=== PATIENT | female | born 1995 | race Caucasian/White ===

== ENCOUNTER 2016-12-28 12:00 | Outpatient (CLI) | payer BC, MEDICAID ==
[~2016-12-28] VITALS: Ht 162.6 cm; Wt 126.1 kg
[~2016-12-28 12:00] MED LIST: CLOT45CR46 TOP; CYCL10TA9 PO; DICL75TA2 PO; DOXY100C2 PO; FAMO20TA5 PO; HYDR-3714 PO; IBUP800T26 PO; LEVO500T69 PO; LEVO750T24 PO; METH4TAB PO; NAPR-243 PO; OXYC-12 PO; SULF-222 PO
--- OUTSIDE RECORDS SUMMARY | 2016-12-28 12:09 | XMS REPORT | Continuity of Care Document ---
Author Author [facility] Organization [facility] Address Unknown Phone Unavailable Care Team Providers Care Finishing Supervisor Plastic Sheets Name Role Phone Siobhan Siu PCP [phone] Source Comments Some departments are not documenting in the electronic medical record. If you do not see the information that you expected, contact Release of Information in the Health Information Management department at [phone] for further assistance in locating additional records.[facility] Active Allergies and Adverse Reactions Not on File Current Medications Not on file Active Problems Not on file Social History Tobacco Use Types Packs/Day Years Used Date Never Assessed Plan of Care Health Maintenance Due Date Last Done Comments Physical (Comprehensive) 2002 Exam Hpv Vaccines (#1) 2006 Pertussis Vaccine 2006 Tetanus Vaccine 2012 Influenza Vaccine 07/28/2016 Results from Last 3 Months Not on file
[2016-12-28 12:15] VITALS: BP 116/67
[2016-12-28] MEDS ORDERED: PREN-53 PO (14:12)
--- NOTE | 2016-12-29 09:39 | Physician Query-Final Dx ---
KIERSTEN REGALADO 12/29/16 0939: Final Diagnosis Give Final Diagnosis Please give Final Diagnosis SABI ANTUNEZ MD 12/29/16 1800: Final Diagnosis Give Final Diagnosis Decreased movement, second trimester KIERSTEN REGALADO Dec 29, 2016 09:39 SABI ANTUNEZ MD Dec 29, 2016 18:00
== END 2016-12-28 14:20 | disposition home or self-care (01) ==
LOC: WSo 12:00 → LDRP 12:00 → WSo 14:20
PROVIDERS: ATTEND Obstetrics & Gynecology
DX: O36.8120 Decreased fetal movements, second trimester, not applicable or unspecified (principal); Z3A.27 27 weeks gestation of pregnancy
CPT/HCPCS: 99213

== ENCOUNTER 2017-02-17 22:06 | Outpatient (CLI) | payer MEDICAID ==
[~2017-02-17] VITALS: Ht 162.6 cm; Wt 128.8 kg
[~2017-02-17 22:06] MED LIST changes: +PREN-53 PO
[2017-02-17 22:30] VITALS: BP 134/70
[2017-02-17 22:33] LABS: BILIRUBIN,URINE NEGATIVE (NEGATIVE); KETONES,URINE NEGATIVE (NEGATIVE); LEUKOCYTE ESTERASE ,URINE 3+ (NEGATIVE); NITRITE,URINE NEGATIVE (NEGATIVE); PH,URINE 5 (5-9); PROTEIN,URINE 1+ (NEGATIVE); UROBILINOGEN,URINE NORMAL (NORMAL)
[2017-02-17 22:42] LABS: SQUAMOUS EPITHELIAL CELL,UR 25-50 /HPF; WBC,URINE 50-100 /HPF
[2017-02-17] MEDS ORDERED: CEPH-507 PO (22:54)
--- NOTE | 2017-02-20 14:04 | Physician Query-Final Dx ---
MATT GRUBBS 02/20/17 1404: Clinic Account Progress/Dx Physician Query: Please give diagnosis Date of Service Feb 17, 2017 at 22:06 EFREM LOAIZA DO 02/20/17 1643: Clinic Account Progress/Dx DIAGNOSIS: Diagnosis 34 week IUP Back pain and pelvic pressure MATT GRUBBS Feb 20, 2017 14:04 EFREM LOAIZA DO Feb 20, 2017 16:43
[2017-03-16] MEDS ORDERED: HYDR-3812 PO (20:23)
[2017-03-16] MEDS ORDERED: DOCU100C37 PO (20:23)
[2017-03-16] MEDS ORDERED: IBUP-1780 PO (20:23)
== END 2017-02-17 23:06 | disposition home or self-care (01) ==
LOC: DELPENDDIS → WSo 22:06 → LDRP 22:13 → WSo 23:06
PROVIDERS: ATTEND Obstetrics & Gynecology
DX: O99.89 Other specified diseases and conditions complicating pregnancy, childbirth and the puerperium (principal); M54.9 Dorsalgia, unspecified; R10.2 Pelvic and perineal pain; Z3A.34 34 weeks gestation of pregnancy
CPT/HCPCS: 81000; 87088; 99213

== ENCOUNTER 2017-02-28 16:30 | Observation (INO) | payer MEDICAID ==
[~2017-02-28] VITALS: Ht 162.6 cm; Wt 128.8 kg
[2017-02-28] VITALS (7 sets, daily range): BP systolic 130–153; BP diastolic 66–86
[~2017-02-28 16:30] MED LIST changes: +CEPH-507 PO
[2017-02-28] MEDS ORDERED: NS IV 1000 ML 1,000 ML ONE (16:59)
[2017-02-28] MEDS ORDERED: NS IV 1000 ML 1,000 ML IV SCH (17:00)
[2017-02-28] MEDS ORDERED: CATHETER FLUSH 10 ML SYR IV PRN (17:15)
[2017-02-28 17:52] LABS: PROTEIN/CREATININE RATIO 0.08
[2017-02-28 18:00] LABS: BASOPHILS % (AUTO) 0 % (0-10); EOSINOPHILS # (AUTO) 0.1 10^3/uL (0.0-0.3); EOSINOPHILS % (AUTO) 1 % (0-10); LYMPHOCYTES % (AUTO) 22 % (12-44); MEAN CORPUSCULAR HEMOGLOBIN 30 PG (25-34); MEAN CORPUSCULAR HGB CONC 35 G/DL (32-36); MEAN CORPUSCULAR VOLUME 85 FL (80-99); MEAN PLATELET VOLUME 12.6 FL (7.4-10.4); MONOCYTES # (AUTO) 0.7 X 10^3 (0.0-1.0); MONOCYTES % (AUTO) 8 % (0-12); NEUTROPHILS # (AUTO) 6.6 X 10^3 (1.8-7.8); NEUTROPHILS % (AUTO) 70 % (42-75); PLATELET COUNT 124 10^3/uL (130-400); RED BLOOD COUNT 4.22 10^6/uL (4.35-5.85); RED CELL DISTRIBUTION WIDTH 14.3 % (10.0-14.5); WHITE BLOOD COUNT 9.4 10^3/uL (4.3-11.0)
[2017-02-28 18:20] LABS: ALANINE AMINOTRANSFERASE 12 U/L (0-55); ALBUMIN 3.5 G/DL (3.2-4.5); ANION GAP 11 MMOL/L (5-14); ASPARTATE AMINO TRANSFERASE 17 U/L (5-34); BILIRUBIN,TOTAL 0.5 MG/DL (0.1-1.0); BLOOD UREA NITROGEN 7 MG/DL (7-18); BUN/CREATININE RATIO 9; CALCIUM 9.2 MG/DL (8.5-10.1); CARBON DIOXIDE 20 MMOL/L (21-32); CHLORIDE 108 MMOL/L (98-107); CREATININE SERUM 0.75 MG/DL (0.60-1.30); GFR ESTIMATED > 60; GLUCOSE 78 MG/DL (70-105); POTASSIUM 3.5 MMOL/L (3.6-5.0); SODIUM 139 MMOL/L (135-145); TOTAL PROTEIN 6.2 G/DL (6.4-8.2); URIC ACID 6.3 MG/DL (2.6-7.2)
--- NOTE | 2017-02-28 18:31 | History & Physical-OB ---
OB - Chief Complaint & HPI Date Date of Admission: Date of Admission: Feb 28, 2017 at 16:45 Chief Complaint/History OB-Reason for Admission/Chief: Acute BP elevation and LE swelling Hx : 1 Hx Para: 0 Expected Date of Delivery: March 29, 2017 Gestational Age in Weeks: 35 Gestational Age in Days: 6 Admission Nurse Assessment Rev: Yes History of Labs O pos Antibody neg Rubella non immune RPR NR HBsAg NR HIV NR GC neg GBS unknown Allergies and Home Medications Allergies Coded Allergies: Penicillins (Verified Allergy, Mild, 02/17/17) amoxicillin (Unverified Allergy, Mild, 02/17/17) Uncoded Allergies: SEASONAL ALLERGIES (Allergy, Mild, 04/30/13) Home Medications Cephalexin 500 Mg Capsule, 500 MG PO QID for 5 Days Prescribed by: HUDSON RICHARD on 02/17/17 2254 [id number]/Iron Fumarate/FA/Dss 1 Each Tablet, 1 EACH PO DAILY, (Reported) OB - History Hx of Present Care: Yes Ultrasounds: Normal mid trimester US Obstetrical Complications: Gestational Hypertension Medical Complications: None Delivery History Hx Blood Disorders: No Patient Past Medical History n/a Immunizations Tetanus Booster (TDap): Less than 5yrs Date of Influenza Vaccine: Aug 27, 2016 OB - Admission Exam Physical Exam HEENT: NCAT Heart: Rhythm Normal Lungs: Clear Abdomen: Gravid Extremities: Normal Reflexes: Normal Membranes: Intact Heart Rate: 130's Accelerations: Accelerations Present Decelerations: No Decelerations Short Term Variability: Present Longterm Variability: Average (6-25) Contractions on Admission: >10 Minutes Apart Intensity: Mild Labs Laboratory Tests Test 02/28/17 16:45 02/28/17 17:30 Range/Units Urine Protein 18 H 6-12 MG/DL Urine Creatinine 225 H 30-125 MG/DL Urine Protein/Creatinine Ratio 0.08 White Blood Count 9.4 4.3-11.0 10^3/uL Red Blood Count 4.22 L 4.35-5.85 10^6/uL Hemoglobin 12.6 11.5-16.0 G/DL Hematocrit 36 35-52 % Mean Corpuscular Volume 85 80-99 FL Mean Corpuscular Hemoglobin 30 25-34 PG Mean Corpuscular Hemoglobin Concent 35 32-36 G/DL Red Cell Distribution Width 14.3 10.0-14.5 % Platelet Count 124 L 130-400 10^3/uL Mean Platelet Volume 12.6 H 7.4-10.4 FL Neutrophils (%) (Auto) 70 42-75 % Lymphocytes (%) (Auto) 22 12-44 % Monocytes (%) (Auto) 8 0-12 % Eosinophils (%) (Auto) 1 0-10 % Basophils (%) (Auto) 0 0-10 % Neutrophils # (Auto) 6.6 1.8-7.8 X 10^3 Lymphocytes # (Auto) 2.0 1.0-4.0 X 10^3 Monocytes # (Auto) 0.7 0.0-1.0 X 10^3 Eosinophils # (Auto) 0.1 0.0-0.3 10^3/uL Basophils # (Auto) 0.0 0.0-0.1 10^3/uL Sodium Level 139 135-145 MMOL/L Potassium Level 3.5 L 3.6-5.0 MMOL/L Chloride Level 108 H 98-107 MMOL/L Carbon Dioxide Level 20 L 21-32 MMOL/L Anion Gap 11 5-14 MMOL/L Blood Urea Nitrogen 7 7-18 MG/DL Creatinine 0.75 0.60-1.30 MG/DL Estimat Glomerular Filtration Rate > 60 BUN/Creatinine Ratio 9 Glucose Level 78 70-105 MG/DL Uric Acid 6.3 2.6-7.2 MG/DL Calcium Level 9.2 8.5-10.1 MG/DL Total Bilirubin 0.5 0.1-1.0 MG/DL Aspartate Amino Transf (AST/SGOT) 17 5-34 U/L Alanine Aminotransferase (ALT/SGPT) 12 0-55 U/L Alkaline Phosphatase 98 40-136 U/L Total Protein 6.2 L 6.4-8.2 G/DL Albumin 3.5 3.2-4.5 G/DL OB - Assessment/Plan/Diagnosis Assessment Assessment: other (GHTN possible PreE) Plan Other Plan PreE labs ordered and pending BPP and Growth ordered If concerns of PreE will consider delivery, possible dc in AM if solely GHTN. BMZ ordered due to possibility of PTD Discharge Diagnosis Diagnosis: 21 yo @ 35.6 weeks GHTN w/ LE edema +3 GBS unknown EFREM LOAIZA DO Feb 28, 2017 18:31
--- NOTE | 2017-02-28 18:50 | Diagnostic Imaging Report ---
INDICATION: -induced hypertension. EXAM: biophysical profile. FINDINGS: The biophysical profile score was 8 out of 8. Presentation is cephalic. PACHECO 17.4. heart rate was 129 bpm. IMPRESSION: biophysical profile score was 8 out of 8. Dictated by: Dictated on workstation # [id number]
[2017-02-28] MEDS ORDERED: BETAMETHASONE ACE/NA PHOS 6 MG/ML (CELESTONE SOLUSPAN) ONE (18:58)
[2017-02-28] MEDS ORDERED: FAMOTIDINE 20MG/2ML IV (PEPCID) IVP NR (20:00)
[2017-03-01] VITALS: BP 133/61
[2017-03-01] MEDS: ACETAMINOPHEN 500 MG TAB (TYLENOL) PO PRN ×2 (01:26→08:21)
[2017-03-01 04:10] VITALS: BP 134/66
[2017-03-01 06:05] VITALS: BP 139/69
[2017-03-01 07:37] VITALS: BP 138/76
--- NOTE | 2017-03-01 07:49 | Progress Note-Standard ---
Standard Progress Note Progress Notes/Assess & Plan Progress/Assessment & Plan Patient had only one blood pressure elevation overnight, otherwise is doing well this morning. She denies headache, shortness of breath, chest pain, right upper quadrant pain. She has occasional contraction but nothing regular. She denies any vision changes. Vital Sign - Last 24 Hours 02/28/17 02/28/17 02/28/17 02/28/17 16:58 17:08 17:41 18:11 Temp 98.0 Pulse 96 95 85 78 Resp 20 20 18 B/P (MAP) 130/69 134/70 138/86 137/84 Pulse Ox 98 O2 Delivery Room Air Room Air Room Air Room Air 02/28/17 02/28/17 02/28/17 03/01/17 19:14 20:00 21:00 00:00 Pulse 88 78 81 81 Resp 18 18 18 18 B/P (MAP) 135/66 153/79 141/77 133/61 O2 Delivery Room Air Room Air Room Air Room Air 03/01/17 03/01/17 04:10 06:05 Pulse 86 106 Resp 18 18 B/P (MAP) 134/66 139/69 O2 Delivery Room Air Room Air NST: Reactive, baseline shifting throughout the night anywhere from 130 to 110, the entire time there is moderate variability with accelerations present, rare variable deceleration [place]: No contractions this morning noted a couple were noted at admission the patient was not feeling them. Biophysical profile: 8 out of 8 with an PACHECO within normal limits growth is greater than 50th percentile Diagnosis: Gestational hypertension 35 week IUP Plan: Second dose of betamethasone to be given tonight at 7 p.m. Starting patient on 24-hour urine protein collection. Discharge patient home with modified bedrest and preeclampsia, labor precautions EFREM LOAIZA DO Mar 01, 2017 7:49 am
[2017-03-01 08:07] VITALS: BP 128/61
[2017-03-01] MEDS ORDERED: SERT25TA PO (08:31)
[2017-03-01] MEDS ORDERED: BETAMETHASONE ACE/NA PHOS 6 MG/ML (CELESTONE SOLUSPAN) IM SCH (09:00)
[2017-03-01 09:15] VITALS: BP 128/61
[2017-03-16] MEDS ORDERED: HYDR-3812 PO (20:23)
[2017-03-16] MEDS ORDERED: DOCU100C37 PO (20:23)
[2017-03-16] MEDS ORDERED: IBUP-1780 PO (20:23)
--- OUTSIDE RECORDS SUMMARY | 2017-04-02 15:06 | XMS REPORT ---
Author Author [facility]TO[facility] Address [address] [place], [place] [id number] Care Team Providers Care Peg Driver Name Role Phone [facility] PCP Unavailable Allergies and Adverse Reactions Name Reaction Notes amoxicillin PENICILLINS Plan of Treatment Not available. Medications Not available. Problem List Not available. Vital Signs Date Time BP-Sys(mm[Hg] BP-Chantel(mm[Hg]) HR(bpm) RR(rpm) Temp WT HT HC BMI BSA BMI Percentile O2 Sat(%) 03/14/2016 10:33:00 AM 122 mmHg 70 mmHg 98 bpm 18 rpm 97.4 F 206 lbs 64 in 35.36 kg/m2 2.05 m2 0 % 97 % Social History Name Description Comments smoking Never Alcohol Unknown Uses seatbelts Current every day Exercises regularly Current every day History of Procedures Not available. Results Summary Not available. History Of Immunizations Not available. History of Past Illness Name Date of Onset Comments NO SIGNIFICANT MEDICAL HX GIVEN Encounter for drug screening Mar 14 2016 12:17PM Payers Insurance Name Company Name Plan Name Plan Number Policy Number Policy Group Number Start Date [facility] PMRV PHYS/DS PMRV PHYS DS N/A History of Encounters Visit Date Visit Type Provider 03/14/2016 Office visit EFREM [facility]
--- OUTSIDE RECORDS SUMMARY | 2017-04-02 15:06 | XMS REPORT | Continuity of Care Document ---
Author Author [facility] Organization [facility] Address Unknown Phone Unavailable Care Team Providers Care Market Research Manager Name Role Phone Siobhan Siu PCP [phone] Source Comments Some departments are not documenting in the electronic medical record. If you do not see the information that you expected, contact Release of Information in the Health Information Management department at [phone] for further assistance in locating additional records.[facility] Active Allergies and Adverse Reactions Not on File Current Medications Not on file Active Problems Not on file Social History Tobacco Use Types Packs/Day Years Used Date Never Assessed Plan of Care Health Maintenance Due Date Last Done Comments Physical (Comprehensive) 2002 Exam Hpv Vaccines (#1) 2006 Pertussis Vaccine 2006 Tetanus Vaccine 2012 Cervical Cancer Screening 2016 Influenza Vaccine 07/28/2017 Results from Last 3 Months Not on file
--- OUTSIDE RECORDS SUMMARY | 2017-04-02 15:06 | XMS REPORT ---
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 Active Problem Acute maxillary sinusitis 461.0 Active Assessment Acute sinusitis, unspecified J01.90 Active Assessment Other specified bacterial agents as the cause of diseases classified elsewhere B96.89 Active Medications Medication Code System Code Instructions Start Date End Date Status Dosage Doxycycline Hyclate [facility] [address]-33 100 MG Orally every 12 hrs Oct 06, 2015 Oct 13, 2015 1 tablet Promethazine VC/Codeine [facility] [address]-63 6.25-5-10 MG/5ML Orally every 6 hrs Oct 06, 2015 5 ml as needed Procedures Procedure Coding System Code Date Office Visit, Est Pt., Level 3 CPT-4 99088 Oct 06, 2015 Vital Signs Date/Time: Oct 06, 2015 Temperature 97.9 F Weight 273.8 lbs Height 64 in BMI 46.99 Index Blood Pressure Diastolic 82 mmHg Blood Pressure Systolic 130 mmHg Cardiac Monitoring Heart Rate 80 bpm BMIPercentile 99.04 % Wt Percentile 99.65 % Results No Known Results Summary Purpose eClinicalWorks Submission
--- OUTSIDE RECORDS SUMMARY | 2017-04-02 15:07 | XMS REPORT ---
Author Author ANNE MARIE RAJPUT Organization [facility] Address [address] [place] [address] Care Team Providers Care Mapper Name Role Phone ANNE MARIE RAJPUT Unavailable PROBLEMS Type Condition ICD9-CM Code FXZ06-VH Code Onset Dates Condition Status SNOMED Code Assessment Dysuria R30.0 May, Active 18702283 Problem Acute maxillary sinusitis 461.0 Active 23525143 Problem MENINGOCOCCAL DX V03.89 Active Assessment Encounter for Papanicolaou smear for cervical cancer screening Z12.4 May, Active 898355296 Assessment Screening for STD (sexually transmitted disease) Z11.3 May Active 853956615 Problem GARDASIL (HPV) DX V04.89 Active Assessment Routine gynecological examination Z01.419 May, Active 921330657233391 ALLERGIES Substance Reaction Event Type Date Status Amoxicillin Unknown Drug Allergy May, Active Penicillins Unknown Non Drug Allergy May, Active SOCIAL HISTORY No smoking Hx information available PLAN OF CARE VITAL SIGNS Height 64 in 2016-06-22 Weight 259.4 lbs 2016-06-22 Heart Rate 72 bpm 2016-06-22 Respiratory Rate 18 2016-06-22 BMI 44.52 kg/m2 2016-06-22 Blood pressure systolic 122 mmHg 2016-06-22 Blood pressure diastolic 74 mmHg 2016-06-22 MEDICATIONS Unknown Medications RESULTS Name Result Date Reference Range PAP TEST, HPV IF ASCUS 2016-06-22 DIAGNOSIS: Specimen adequacy: Clinician provided ICD10: Performed by: . . Note: . CULTURE, GENITAL 2016-06-22 Genital Culture, Routine Final report Result 1 Result 2 GC/CHLAM PROBE (STATE) 2016-06-22 CHLAMYDIA negative GC negative TRICHOMONAS (IN HOUSE) 2016-06-22 TRICHOMONAS Negative Control + Lot # [id number] Exp date UA LONG DIP (IN HOUSE) 2016-06-22 Lot # Exp date Clarity clear Color dark yellow Odor GLU negative ELIDA negative KET negative SG >=1.030 BLO 3+ pH 5.0 Protein negative URO 0.2 NIT negative DORIE negative Lot # Exp date PDF Report 2016-06-22 PDF Report1 LCLS BACTERIAL VAGINOSIS (IN HOUSE) 2016-06-22 RESULTS Negative Control + Lot # [id number] Exp date PROCEDURES Procedure Date Ordered Related Diagnosis Body Site No Charge June 22, 2016 CULTURE, BACTERIA, OTHER June 22, 2016 Preventive Care Est Pt. Age 18-39 June 22, 2016 TRICHOMONAS ASSAY W/OPTIC June 22, 2016 SPECIMEN HANDLING June 22, 2016 URINALYSIS, AUTO, W/O SCOPE June 22, 2016 ORELLANA VAG, DNA, DIR PROBE June 22, 2016 IMMUNIZATIONS No Known Immunizations
--- OUTSIDE RECORDS SUMMARY | 2017-04-02 15:07 | XMS REPORT ---
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
--- OUTSIDE RECORDS SUMMARY | 2017-04-02 15:07 | XMS REPORT ---
Author Author EFREM ANTOINE [facility] Address [address] [place], [place] [address] Care Team Providers Care Platform Material Handler Manager Name Role Phone EFREM ANTOINE PCP Unavailable [...] for drug screening Mar 14 2016 12:17PM [employer] employment physical and drug screen Mar 14 2016 10:34AM Payers Insurance Name Company Name Plan Name Plan Number Policy Number Policy Group Number Start Date [facility] PHYS/DS [facility] PHYS DS N/A History of Encounters Visit Date Visit Type Provider 03/14/2016 Office visit EFREM [place]
--- OUTSIDE RECORDS SUMMARY | 2017-04-02 15:08 | XMS REPORT | Continuity of Care Document ---
Author Author Formerly [facility] Address Unknown Phone Unavailable Allergies Active Description Code Type Severity Reaction Onset Reported/Identified Relationship to Patient Clinical Status Yes SEASONAL ALLERGIES SEASONAL ALLERGIES Mild N/A 04/30/2013 Yes Amoxicillin Drug Allergy N/A N/A 07/31/2013 Yes Penicillins Drug Allergy N/A N/A 07/31/2013 Yes amoxicillin [id number] Drug Allergy Mild N/A 02/17/2017 Yes Penicillins [id number] Drug Allergy Mild N/A 02/17/2017 Medications Problems Date Dx Coded Attending Type Code Diagnosis Diagnosed By 10/14/2009 309.0 AD ADJ D/O W DEPRESSED 10/14/2009 309.0 AD ADJ D/O W DEPRESSED 10/14/2009 309.0 AD ADJ D/O W DEPRESSED 10/14/2009 TERRIE MCKEON APRN 309.0 AD ADJ D/O W DEPRESSED 04/27/2010 300.00 AN ANXIETY UNSPEC 04/27/2010 311 MO DEPRESS NOS 04/27/2010 300.00 AN ANXIETY UNSPEC 04/27/2010 311 MO DEPRESS NOS 04/27/2010 300.00 AN ANXIETY UNSPEC 04/27/2010 311 MO DEPRESS NOS 04/27/2010 TERRIE MCKEON APRN 300.00 AN ANXIETY UNSPEC 04/27/2010 TERRIE MCKEON APRN 311 MO DEPRESS NOS 09/21/2010 300.4 MO DYSTHYMIC DISORDER 09/21/2010 300.4 MO DYSTHYMIC DISORDER 09/21/2010 300.4 MO DYSTHYMIC DISORDER 09/21/2010 TERRIE MCKEON APRN 300.4 MO DYSTHYMIC DISORDER 03/13/2013 V03.89 MENINGOCOCCAL DX 03/13/2013 V04.89 GARDASIL (HPV) DX 03/13/2013 V03.89 MENINGOCOCCAL DX 03/13/2013 V04.89 GARDASIL (HPV) DX 03/13/2013 V03.89 MENINGOCOCCAL DX 03/13/2013 V04.89 GARDASIL (HPV) DX 03/13/2013 TERRIE MCKEON APRN Bhaskar V03.89 MENINGOCOCCAL DX 03/13/2013 MIKE CHAVEZ TERRIE A V04.89 GARDASIL (HPV) DX 05/01/2013 THAO PEDROZA DO Ot 682.6 CELLULITIS OF LEG 05/01/2013 THAO PEDROZA DO Ot 916.4 INSECT BITE HIP LEG 05/01/2013 THAO PEDROZA DO Ot 916.5 INSECT BITE HIP/LEG-INF 05/01/2013 THAO PEDROZA DO Ot E000.8 OTHER EXTERNAL CAUSE STATUS 05/01/2013 THAO PEDROZA DO Ot E906.4 NONVENOM ARTHROPOD BITE 07/31/2013 461.0 SINUSITIS, ACUTE MAXILLARY 07/31/2013 MIKE CAIFabio TERRIE Muro 461.0 SINUSITIS, ACUTE MAXILLARY 03/01/2014 SHOAIB GIMENEZ PAIL TESTER Ot 599.0 URIN TRACT INFECTION NOS 03/01/2014 SHOAIB GIMENEZ PAIL TESTER Ot 724.5 BACKACHE NOS 09/02/2014 THAO PEDROZA DO Ot 844.9 SPRAIN OF KNEE LEG NOS 09/02/2014 THAO PEDROZA DO Ot 845.00 SPRAIN OF ANKLE NOS 09/02/2014 THAO PEDROZA DO Ot 959.7 LOWER LEG INJURY NOS 09/02/2014 THAO PEDROZA DO Ot E000.8 OTHER EXTERNAL CAUSE STATUS 09/02/2014 THAO PEDROZA DO Ot E883.9 FALL INTO OTHER HOLE 09/02/2014 THAO PEDROZA DO Ot W17.2XXA FALL INTO HOLE, INITIAL ENCOUNTER 09/02/2014 THAO PEDROZA DO Ot Y99.8 OTHER EXTERNAL CAUSE STATUS 05/21/2015 Ot 424.1 05/21/2015 Ot 786.2 05/21/2015 RENITA RIVAS MD Ot 786.2 05/25/2015 TERESA BAILEY DO Ot 214.9 LIPOMA NOS 05/25/2015 TERESA BAILEY DO Ot 278.01 MORBID OBESITY 05/25/2015 TERESA BAILEY DO Ot 300.00 ANXIETY STATE NOS 05/25/2015 TERESA BAILEY DO Ot 305.1 TOBACCO USE DISORDER 05/25/2015 LYNN KING SANCHEZTIE Ot 311 DEPRESSIVE DISORDER NEC 05/25/2015 LYNN TERESA SANCHEZ Ot 424.1 AORTIC VALVE DISORDER 05/25/2015 LYNN KING SANCHEZTIE Ot 477.9 ALLERGIC RHINITIS NOS 05/25/2015 LYNN DOTERESA Ot 732.0 JUV OSTEOCHONDROS SPINE 05/25/2015 LYNN TERESA SANCHEZ Ot V85.42 BODY MASS INDEX 45.0-49.9, ADULT 06/04/2015 MADDI PAZ, MALIKA Kate Ot 682.6 CELLULITIS OF LEG 06/04/2015 MADDI PAZ, MALIAK Kate Ot 729.81 SWELLING OF LIMB 06/04/2015 MADDI PAZ, MALIKA Kate Ot 998.59 OTH POSTOPER INFECTION 06/04/2015 LYNN KING SANCHEZTIE Ot 214.9 06/28/2015 TAMARA HOLLAND Ot 682.6 CELLULITIS OF LEG 06/28/2015 TAMARA HOLLAND Ot 998.59 OTH POSTOPER INFECTION 09/10/2015 Ot 424.1 09/10/2015 Ot 786.2 09/10/2015 RENITA RIVAS MD Ot 786.2 09/10/2015 LYNN , JESSROUTIE Ot 214.9 09/10/2015 LYNN JESS SANCHEZROUTIE Ot 782.2 09/10/2015 LYNN KING SANCHEZTIE Ot V72.84 09/10/2015 LYNN , JESSROUTIE Ot 214.9 09/16/2015 LYNN , JESSROUTIE Ot 214.9 09/16/2015 Ot 424.1 09/16/2015 Ot 786.2 09/16/2015 RENITA RIVAS MD Ot 786.2 09/16/2015 LYNN , JESSROUTIE Ot 214.9 09/16/2015 LYNN , JESSROUTIE Ot 782.2 09/16/2015 LYNN , JESSROUTIE Ot V72.84 12/28/2016 RENITA RIVAS MD Ot 786.2 COUGH 12/28/2016 LYNNTERESA RANGEL DO Ot 214.9 LIPOMA NOS 12/28/2016 LYNN DO, KINGTIE Ot 782.2 LOCAL SUPRFICIAL SWELLNG 12/28/2016 LYNN SANCHEZ, JESSROUTIE Ot V72.84 EXAM PRE-OPERATIVE NOS 12/28/2016 EVELYN PAZ, RENITA Herrera Ot 786.2 COUGH 12/28/2016 LYNN DO, JESSROUTIE Ot 214.9 LIPOMA NOS 12/28/2016 LYNN DO, JESSROUTIE Ot 782.2 LOCAL SUPRFICIAL SWELLNG 12/28/2016 LYNN SANCHEZ, JESSROUTIE Ot V72.84 EXAM PRE-OPERATIVE NOS 12/28/2016 TULIO PAZ, SABI N Ot O36.8120 DECREASED MOVEMENTS, SECOND TRIMES 12/28/2016 TULIO PAZ, SABI N Ot Z3A.27 27 WEEKS GESTATION OF 12/30/2016 TULIO PAZ SABI N Ot O36.8120 DECREASED MOVEMENTS, SECOND TRIMES 12/30/2016 TULIO PAZ, SABI N Ot Z3A.27 27 WEEKS GESTATION OF 02/17/2017 EVELYN PAZ, RENITA Herrera Ot 786.2 COUGH 02/17/2017 LYNN DO, JESSROUTIE Ot 214.9 LIPOMA NOS 02/17/2017 LYNN SANCHEZ, KINGTIE Ot 782.2 LOCAL SUPRFICIAL SWELLNG 02/17/2017 LYNN SANCHEZ, JESSROUTIE Ot V72.84 EXAM PRE-OPERATIVE NOS 02/17/2017 FENECH DO, EFREM S Ot M54.9 DORSALGIA, UNSPECIFIED 02/17/2017 FENECH DO, EFREM S Ot O99.89 OTH DISEASES AND CONDITIONS COMPL PREG/ C 02/17/2017 FENECH DO, EFREM S Ot R10.2 PELVIC AND PERINEAL PAIN 02/17/2017 FENECH DO, EFREM S Ot Z3A.34 34 WEEKS GESTATION OF 02/21/2017 FENECH DO, EFREM S Ot M54.9 DORSALGIA, UNSPECIFIED 02/21/2017 FENECH DO, EFREM S Ot O99.89 OTH DISEASES AND CONDITIONS COMPL PREG/ C 02/21/2017 FENECH DO, EFREM S Ot R10.2 PELVIC AND PERINEAL PAIN 02/21/2017 FENECH DO, EFREM S Ot Z3A.34 34 WEEKS GESTATION OF 03/01/2017 JOSSE SANCHEZ EFREM S Ot O13.3 GESTATIONAL HTN W/O SIGNIFICANT PROTEINU 03/01/2017 LOREECH EFREM SANCHEZ S Ot Z3A.35 35 WEEKS GESTATION OF 03/01/2017 JOSSE DO, EFREM S Ot O13.3 GESTATIONAL HTN W/O SIGNIFICANT PROTEINU 03/01/2017 FENECH EFREM S Ot Z3A.35 35 WEEKS GESTATION OF 03/10/2017 EVELYN PAZ, RENITA Herrera Ot 786.2 COUGH 03/10/2017 LYNN DO, CHANDROUTIE Ot 214.9 LIPOMA NOS 03/10/2017 LYNN DO, CHANDROUTIE Ot 782.2 LOCAL SUPRFICIAL SWELLNG 03/10/2017 LYNN DO, CHANDROUTIE Ot V72.84 EXAM PRE-OPERATIVE NOS 03/10/2017 EVELYN PAZ, RENITA L Ot 786.2 COUGH 03/10/2017 LYNN DO, CHANDROUTIE Ot 214.9 LIPOMA NOS 03/10/2017 LYNN DO, CHANDROUTIE Ot 782.2 LOCAL SUPRFICIAL SWELLNG 03/10/2017 LYNN DO, CHANDROUTIE Ot V72.84 EXAM PRE-OPERATIVE NOS 03/11/2017 JOSSE EFREM SANCHEZ S Ot O13.3 GESTATIONAL HTN W/O SIGNIFICANT PROTEINU 03/11/2017 EFREM LOAIZA DO S Ot Z3A.35 35 WEEKS GESTATION OF 03/18/2017 EFREM LOAIZA DO S Ot D62 ACUTE POSTHEMORRHAGIC ANEMIA 03/18/2017 FEREM LOAIZA DO Ot E66.9 OBESITY, UNSPECIFIED 03/18/2017 EFREM LOAIZA DO Ot O13.3 GESTATIONAL HTN W/O SIGNIFICANT PROTEINU 03/18/2017 EFRME LOAIZA DO Ot 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 03/18/2017 EFREM LOAIZA DO S Ot O69.81X0 LABOR AND DEL COMP BY CORD AROUND NECK , 03/18/2017 EFREM LOAIZA DO Ot O76 ABNLT IN HEART RATE AND RHYTHM COM 03/18/2017 EFREM LOAIZA DO Ot O99.03 ANEMIA COMPLICATING THE PUERPERIUM 03/18/2017 EFREM LOAIZA DO Ot O99.213 OBESITY COMPLICATING , THIRD TR 03/18/2017 EFREM LOAIZA DO Ot Z23 ENCOUNTER FOR IMMUNIZATION 03/18/2017 EFREM LOAIZA DO Ot Z37.0 SINGLE LIVE 03/18/2017 EFREM LOAIZA DO Ot Z3A.38 38 WEEKS GESTATION OF 03/18/2017 EFREM LOAIZA DO Ot Z68.42 BODY MASS INDEX (BMI) 45.0-49.9, ADULT 03/22/2017 SARAI COOLEY DO Ot O12.13 GESTATIONAL PROTEINURIA, THIRD TRIMESTER 03/22/2017 SARAI COOLEY DO Ot O99.89 OTH DISEASES AND CONDITIONS COMPL PREG/C 03/22/2017 YASIR SANCHEZ SARAI Hendrickson Ot R51 HEADACHE 03/22/2017 SARAI COOLEY DO Ot Z3A.37 37 WEEKS GESTATION OF Procedures Code Description [place] [address] THERAPUTIC INJ SQ/IM 07/31/2013 J1040 DEPO MEDROL 80 MG INJ 07/31/2013 42K00I2 EXTRACTION OF POC, LOW CERVICAL, OPEN AP 03/16/2017 [id number] INTRODUCE OF ADHESION BARRIER INTO FEM R 03/16/2017 Results Test Result Range Complete urinalysis with reflex to culture - 02/17/17 22:00 Urine color determination YELLOW NRG Urine clarity determination SLIGHTLY CLOUDY NRG Urine pH measurement by test strip 5 5- 9 Specific gravity of urine by test strip 1.025 1.016-1.022 Urine protein assay by test strip, semi-quantitative 1+ NEGATIVE Urine glucose detection by automated test strip NEGATIVE NEGATIVE Erythrocytes detection in urine sediment by light microscopy NEGATIVE NEGATIVE Urine ketones detection by automated test strip NEGATIVE NEGATIVE Urine nitrite detection by test strip NEGATIVE NEGATIVE Urine total bilirubin detection by test strip NEGATIVE NEGATIVE Urine urobilinogen measurement by automated test strip (mass/volume) NORMAL NORMAL Urine leukocyte esterase detection by dipstick 3+ NEGATIVE Automated urine sediment erythrocyte count by microscopy (number/high power field) NONE NRG Automated urine sediment leukocyte count by microscopy (number/high power field ) [HPF] NRG Bacteria detection in urine sediment by light microscopy MODERATE NRG Squamous epithelial cells detection in urine sediment by light microscopy 25-50 NRG Crystals detection in urine sediment by light microscopy NONE NRG Casts detection in urine sediment by light microscopy NONE NRG Mucus detection in urine sediment by light microscopy MODERATE NRG Complete urinalysis with reflex to culture YES NRG Bacterial urine culture - 02/17/17 22:00 Bacterial urine culture FOOTNOTE NRG Urine protein/creatinine mass ratio - 02/28/17 16:45 Urine protein measurement (mass/volume) 18 mg/dL 6-12 Urine creatinine measurement (mass/volume) 225 mg/dL 30-125 Urine protein/creatinine mass ratio 0.08 NRG Complete blood count (CBC) with automated white blood cell (WBC) differential - 02/28/17 17:30 Blood leukocytes automated count (number/volume) 9.4 10*3/ uL 4.3-11.0 Blood erythrocytes automated count (number/volume) 4.22 10*6 /uL 4.35-5.85 Venous blood hemoglobin measurement (mass/volume) 12.6 g/dL 11.5-16.0 Blood hematocrit (volume fraction) 36 % 35-52 Automated erythrocyte mean corpuscular volume 85 [foz_us] 80-99 Automated erythrocyte mean corpuscular hemoglobin (mass per erythrocyte) 30 pg 25-34 Automated erythrocyte mean corpuscular hemoglobin concentration measurement ( mass/volume) 35 g/dL 32-36 Automated erythrocyte distribution width ratio 14.3 % 10.0-14.5 Automated blood platelet count (count/volume) 124 10*3/uL 130-400 Automated blood platelet mean volume measurement 12.6 [foz_ us] 7.4-10.4 Automated blood neutrophils/100 leukocytes 70 % 42-75 Automated blood lymphocytes/100 leukocytes 22 % 12-44 Blood monocytes/100 leukocytes 8 % 0-12 Automated blood eosinophils/100 leukocytes 1 % 0-10 Automated blood basophils/100 leukocytes 0 % 0-10 Blood neutrophils automated count (number/volume) 6.6 10*3 1.8-7.8 Blood lymphocytes automated count (number/volume) 2.0 10*3 1.0-4.0 Blood monocytes automated count (number/volume) 0.7 10*3 0.0-1.0 Automated eosinophil count 0.1 10*3/uL 0.0-0.3 Automated blood basophil count (count/volume) 0.0 10*3/uL 0.0-0.1 Comprehensive metabolic panel - 02/28/17 17:30 Serum or plasma sodium measurement (moles/volume) 139 mmol/ L 135-145 Serum or plasma potassium measurement (moles/volume) 3.5 mmol/L 3.6-5.0 Serum or plasma chloride measurement (moles/volume) 108 mmol /L 98-107 Carbon dioxide 20 mmol/L 21-32 Serum or plasma anion gap determination (moles/volume) 11 mmol/L 5-14 Serum or plasma urea nitrogen measurement (mass/volume) 7 mg /dL 7-18 Serum or plasma creatinine measurement (mass/volume) 0.75 mg /dL 0.60-1.30 Serum or plasma urea nitrogen/creatinine mass ratio 9 NRG Serum or plasma creatinine measurement with calculation of estimated glomerular filtration rate > NRG Serum or plasma glucose measurement (mass/volume) 78 mg/dL 70-105 Serum or plasma calcium measurement (mass/volume) 9.2 mg/dL 8.5-10.1 Serum or plasma total bilirubin measurement (mass/volume) 0.5 mg/dL 0.1-1.0 Serum or plasma alkaline phosphatase measurement (enzymatic activity/volume) 98 U/L 40-136 Serum or plasma aspartate aminotransferase measurement (enzymatic activity/ volume) 17 U/L 5-34 Serum or plasma alanine aminotransferase measurement (enzymatic activity/volume ) 12 U/L 0-55 Serum or plasma protein measurement (mass/volume) 6.2 g/dL 6.4-8.2 Serum or plasma albumin measurement (mass/volume) 3.5 g/dL 3.2-4.5 Serum or plasma uric acid measurement (mass/volume) - 02/28/17 17:30 Serum or plasma uric acid measurement (mass/volume) 6.3 mg/ dL 2.6-7.2 Complete urinalysis with reflex to culture - 03/05/17 17:33 Urine color determination YELLOW NRG Urine clarity determination SLIGHTLY CLOUDY NRG Urine pH measurement by test strip 5 5- 9 Specific gravity of urine by test strip 1.025 1.016-1.022 Urine protein assay by test strip, semi-quantitative 2+ NEGATIVE Urine glucose detection by automated test strip NEGATIVE NEGATIVE Erythrocytes detection in urine sediment by light microscopy NEGATIVE NEGATIVE Urine ketones detection by automated test strip NEGATIVE NEGATIVE Urine nitrite detection by test strip NEGATIVE NEGATIVE Urine total bilirubin detection by test strip NEGATIVE NEGATIVE Urine urobilinogen measurement by automated test strip (mass/volume) 1 mg/dL NORMAL Urine leukocyte esterase detection by dipstick 3+ NEGATIVE Automated urine sediment erythrocyte count by microscopy (number/high power field) NONE NRG Automated urine sediment leukocyte count by microscopy (number/high power field ) [HPF] NRG Bacteria detection in urine sediment by light microscopy FEW NRG Squamous epithelial cells detection in urine sediment by light microscopy 25-50 NRG Crystals detection in urine sediment by light microscopy NONE NRG Casts detection in urine sediment by light microscopy NONE NRG Mucus detection in urine sediment by light microscopy NEGATIVE NRG Complete urinalysis with reflex to culture YES NRG Urine protein/creatinine mass ratio - 03/05/17 17:33 Urine protein measurement (mass/volume) 18 mg/dL 6-12 Urine creatinine measurement (mass/volume) 263 mg/dL 30-125 Urine protein/creatinine mass ratio 0.07 NRG Bacterial urine culture - 03/05/17 17:33 URINE CULTURE RESULTS <10,000/ML NRG Complete blood count (CBC) with automated white blood cell (WBC) differential - 03/05/17 18:30 Blood leukocytes automated count (number/volume) 11.8 10*3/ uL 4.3-11.0 Blood erythrocytes automated count (number/volume) 4.04 10*6 /uL 4.35-5.85 Venous blood hemoglobin measurement (mass/volume) 11.7 g/dL 11.5-16.0 Blood hematocrit (volume fraction) 35 % 35-52 Automated erythrocyte mean corpuscular volume 86 [foz_us] 80-99 Automated erythrocyte mean corpuscular hemoglobin (mass per erythrocyte) 29 pg 25-34 Automated erythrocyte mean corpuscular hemoglobin concentration measurement ( mass/volume) 34 g/dL 32-36 Automated erythrocyte distribution width ratio 14.4 % 10.0-14.5 Automated blood platelet count (count/volume) 130 10*3/uL 130-400 Automated blood platelet mean volume measurement 12.8 [foz_ us] 7.4-10.4 Automated blood neutrophils/100 leukocytes 74 % 42-75 Automated blood lymphocytes/100 leukocytes 15 % 12-44 Blood monocytes/100 leukocytes 10 % 0-12 Automated blood eosinophils/100 leukocytes 1 % 0-10 Automated blood basophils/100 leukocytes 0 % 0-10 Blood neutrophils automated count (number/volume) 8.7 10*3 1.8-7.8 Blood lymphocytes automated count (number/volume) 1.8 10*3 1.0-4.0 Blood monocytes automated count (number/volume) 1.1 10*3 0.0-1.0 Automated eosinophil count 0.2 10*3/uL 0.0-0.3 Automated blood basophil count (count/volume) 0.0 10*3/uL 0.0-0.1 Comprehensive metabolic panel - 03/05/17 18:30 Serum or plasma sodium measurement (moles/volume) 139 mmol/ L 135-145 Serum or plasma potassium measurement (moles/volume) 3.4 mmol/L 3.6-5.0 Serum or plasma chloride measurement (moles/volume) 109 mmol /L 98-107 Carbon dioxide 18 mmol/L 21-32 Serum or plasma anion gap determination (moles/volume) 12 mmol/L 5-14 Serum or plasma urea nitrogen measurement (mass/volume) 9 mg /dL 7-18 Serum or plasma creatinine measurement (mass/volume) 0.74 mg /dL 0.60-1.30 Serum or plasma urea nitrogen/creatinine mass ratio 12 NRG Serum or plasma creatinine measurement with calculation of estimated glomerular filtration rate > NRG Serum or plasma glucose measurement (mass/volume) 95 mg/dL 70-105 Serum or plasma calcium measurement (mass/volume) 8.6 mg/dL 8.5-10.1 Serum or plasma total bilirubin measurement (mass/volume) 0.4 mg/dL 0.1-1.0 Serum or plasma alkaline phosphatase measurement (enzymatic activity/volume) 107 U/L 40-136 Serum or plasma aspartate aminotransferase measurement (enzymatic activity/ volume) 14 U/L 5-34 Serum or plasma alanine aminotransferase measurement (enzymatic activity/volume ) 22 U/L 0-55 Serum or plasma protein measurement (mass/volume) 5.9 g/dL 6.4-8.2 Serum or plasma albumin measurement (mass/volume) 3.3 g/dL 3.2-4.5 Serum or plasma uric acid measurement (mass/volume) - 03/05/17 18:30 Serum or plasma uric acid measurement (mass/volume) 6.6 mg/ dL 2.6-7.2 Complete urinalysis with reflex to culture - 03/10/17 21:25 Urine color determination YELLOW NRG Urine clarity determination SLIGHTLY CLOUDY NRG Urine pH measurement by test strip 6.5 5 -9 Specific gravity of urine by test strip 1.020 1.016-1.022 Urine protein assay by test strip, semi-quantitative 2+ NEGATIVE Urine glucose detection by automated test strip 1+ NEGATIVE Erythrocytes detection in urine sediment by light microscopy NEGATIVE NEGATIVE Urine ketones detection by automated test strip 1+ NEGATIVE Urine nitrite detection by test strip NEGATIVE NEGATIVE Urine total bilirubin detection by test strip NEGATIVE NEGATIVE Urine urobilinogen measurement by automated test strip (mass/volume) NORMAL NORMAL Urine leukocyte esterase detection by dipstick 3+ NEGATIVE Automated urine sediment erythrocyte count by microscopy (number/high power field) NONE NRG Automated urine sediment leukocyte count by microscopy (number/high power field ) [HPF] NRG Bacteria detection in urine sediment by light microscopy FEW NRG Squamous epithelial cells detection in urine sediment by light microscopy 0-2 NRG Crystals detection in urine sediment by light microscopy NONE NRG Casts detection in urine sediment by light microscopy NONE NRG Mucus detection in urine sediment by light microscopy NEGATIVE NRG Complete urinalysis with reflex to culture YES NRG Bacterial urine culture - 03/10/17 21:25 URINE CULTURE RESULTS <10,000/ML NRG Complete urinalysis with reflex to culture - 03/10/17 22:15 Urine color determination YELLOW NRG Urine clarity determination CLEAR NRG Urine pH measurement by test strip 6.5 5 -9 Specific gravity of urine by test strip 1.020 1.016-1.022 Urine protein assay by test strip, semi-quantitative 2+ NEGATIVE Urine glucose detection by automated test strip NEGATIVE NEGATIVE Erythrocytes detection in urine sediment by light microscopy NEGATIVE NEGATIVE Urine ketones detection by automated test strip NEGATIVE NEGATIVE Urine nitrite detection by test strip NEGATIVE NEGATIVE Urine total bilirubin detection by test strip NEGATIVE NEGATIVE Urine urobilinogen measurement by automated test strip (mass/volume) NORMAL NORMAL Urine leukocyte esterase detection by dipstick 1+ NEGATIVE Automated urine sediment erythrocyte count by microscopy (number/high power field) NONE NRG Automated urine sediment leukocyte count by microscopy (number/high power field ) [HPF] NRG Bacteria detection in urine sediment by light microscopy NEGATIVE NRG Squamous epithelial cells detection in urine sediment by light microscopy 5-10 NRG Crystals detection in urine sediment by light microscopy NONE NRG Casts detection in urine sediment by light microscopy NONE NRG Mucus detection in urine sediment by light microscopy SMALL NRG Complete urinalysis with reflex to culture NO NRG Complete blood count (CBC) with automated white blood cell (WBC) differential - 03/15/17 21:20 Blood leukocytes automated count (number/volume) 9.8 10*3/ uL 4.3-11.0 Blood erythrocytes automated count (number/volume) 4.17 10*6 /uL 4.35-5.85 Venous blood hemoglobin measurement (mass/volume) 12.1 g/dL 11.5-16.0 Blood hematocrit (volume fraction) 35 % 35-52 Automated erythrocyte mean corpuscular volume 84 [foz_us] 80-99 Automated erythrocyte mean corpuscular hemoglobin (mass per erythrocyte) 29 pg 25-34 Automated erythrocyte mean corpuscular hemoglobin concentration measurement ( mass/volume) 34 g/dL 32-36 Automated erythrocyte distribution width ratio 14.2 % 10.0-14.5 Automated blood platelet count (count/volume) 145 10*3/uL 130-400 Automated blood platelet mean volume measurement 12.2 [foz_ us] 7.4-10.4 Automated blood neutrophils/100 leukocytes 68 % 42-75 Automated blood lymphocytes/100 leukocytes 22 % 12-44 Blood monocytes/100 leukocytes 9 % 0-12 Automated blood eosinophils/100 leukocytes 1 % 0-10 Automated blood basophils/100 leukocytes 0 % 0-10 Blood neutrophils automated count (number/volume) 6.6 10*3 1.8-7.8 Blood lymphocytes automated count (number/volume) 2.2 10*3 1.0-4.0 Blood monocytes automated count (number/volume) 0.9 10*3 0.0-1.0 Automated eosinophil count 0.1 10*3/uL 0.0-0.3 Automated blood basophil count (count/volume) 0.0 10*3/uL 0.0-0.1 Blood type T Indirect antibody screen panel - 03/15/17 21:20 ABO+Rh group OP [facility] Transfusion band number [id number] [facility] Blood group antibody screen NEGATIVE [facility] Complete blood count (CBC) with automated white blood cell (WBC) differential - 03/17/17 05:52 Blood leukocytes automated count (number/volume) 12.8 10*3/ uL 4.3-11.0 Blood erythrocytes automated count (number/volume) 3.21 10*6 /uL 4.35-5.85 Venous blood hemoglobin measurement (mass/volume) 9.2 g/dL 11.5-16.0 Blood hematocrit (volume fraction) 28 % 35-52 Automated erythrocyte mean corpuscular volume 86 [foz_us] 80-99 Automated erythrocyte mean corpuscular hemoglobin (mass per erythrocyte) 29 pg 25-34 Automated erythrocyte mean corpuscular hemoglobin concentration measurement ( mass/volume) 33 g/dL 32-36 Automated erythrocyte distribution width ratio 14.1 % 10.0-14.5 Automated blood platelet count (count/volume) 120 10*3/uL 130-400 Automated blood platelet mean volume measurement 12.3 [foz_ us] 7.4-10.4 Automated blood neutrophils/100 leukocytes 80 % 42-75 Automated blood lymphocytes/100 leukocytes 13 % 12-44 Blood monocytes/100 leukocytes 7 % 0-12 Automated blood eosinophils/100 leukocytes 0 % 0-10 Automated blood basophils/100 leukocytes 0 % 0-10 Blood neutrophils automated count (number/volume) 10.3 10*3 1.8-7.8 Blood lymphocytes automated count (number/volume) 1.6 10*3 1.0-4.0 Blood monocytes automated count (number/volume) 0.9 10*3 0.0-1.0 Automated eosinophil count 0.0 10*3/uL 0.0-0.3 Automated blood basophil count (count/volume) 0.0 10*3/uL 0.0-0.1 Encounters ACCT No. Visit Date/Time Discharge Status Pt. Type Provider Facility Loc./Unit Complaint [id number] 04/02/2014 10:52:00 04/02/2014 23: 59:59 [facility] Outpatient TERRIE MCKEON APRN [id number] 07/31/2013 09:04:00 Document Registration [id number] 04/10/2013 10:21:00 Document Registration [id number] 03/13/2013 13:10:00 Document Registration
== END 2017-03-01 08:30 | disposition home or self-care (01) ==
LOC: LDRP 16:30 → UNDOADMOB 16:45 → UNDODISOB 03-01 09:15
PROVIDERS: ADMIT Obstetrics & Gynecology; ATTEND Obstetrics & Gynecology
DX: O13.3 Gestational [pregnancy-induced] hypertension without significant proteinuria, third trimester (principal); Z3A.35 35 weeks gestation of pregnancy
CPT/HCPCS: 36415; 76805; 76819; 80053; 82570; 84156; 84550; 85025; 96361; 96372; 96375; G0378

== ENCOUNTER 2017-03-01 18:49 | Outpatient (CLI) | payer MEDICAID ==
[~2017-03-01 18:49] MED LIST changes: +SERT25TA PO
[2017-03-01] MEDS ORDERED: BETAMETHASONE ACE/NA PHOS 6 MG/ML (CELESTONE SOLUSPAN) ONE (19:08)
[2017-03-01 19:13] VITALS: BP 143/82
[2017-03-01 19:15] VITALS: BP 142/90
[2017-03-01] MEDS ORDERED: BETAMETHASONE ACE/NA PHOS 6 MG/ML (CELESTONE SOLUSPAN) IM SCH (20:15)
[2017-03-02] MEDS ORDERED: BETAMETHASONE ACE/NA PHOS 6 MG/ML (CELESTONE SOLUSPAN) IM SCH (02:15)
--- NOTE | 2017-03-02 12:16 | Physician Query-Final Dx ---
KIERSTEN REGALADO 03/02/17 1216: Clinic Account Progress/Dx Physician Query: Please give diagnosis Date of Service Mar 01, 2017 at 18:49 EFREM LOAIZA DO 03/02/17 1256: Clinic Account Progress/Dx DIAGNOSIS: Diagnosis 35 week IUP GHTN BMZ 2nd injection KIERSTEN REGALADO Mar 02, 2017 12:16 EFREM LOAIZA DO Mar 02, 2017 12:56
[2017-03-16] MEDS ORDERED: DOCU100C37 PO (20:23)
[2017-03-16] MEDS ORDERED: HYDR-3812 PO (20:23)
[2017-03-16] MEDS ORDERED: IBUP-1780 PO (20:23)
== END 2017-03-01 19:23 | disposition home or self-care (01) ==
LOC: WSo 18:49
PROVIDERS: ATTEND Obstetrics & Gynecology
DX: O13.3 Gestational [pregnancy-induced] hypertension without significant proteinuria, third trimester (principal); Z3A.35 35 weeks gestation of pregnancy
CPT/HCPCS: 96372

== ENCOUNTER 2017-03-05 17:08 | Outpatient (CLI) | payer MEDICAID ==
[~2017-03-05] VITALS: Ht 162.6 cm; Wt 133.4 kg
[2017-03-05] VITALS (9 sets, daily range): BP systolic 123–155; BP diastolic 58–79
[2017-03-05 17:39] LABS: BILIRUBIN,URINE NEGATIVE (NEGATIVE); KETONES,URINE NEGATIVE (NEGATIVE); LEUKOCYTE ESTERASE ,URINE 3+ (NEGATIVE); NITRITE,URINE NEGATIVE (NEGATIVE); PH,URINE 5 (5-9); PROTEIN,URINE 2+ (NEGATIVE); UROBILINOGEN,URINE 1 MG/DL (NORMAL)
[2017-03-05 17:54] LABS: SQUAMOUS EPITHELIAL CELL,UR 25-50 /HPF; WBC,URINE 25-50 /HPF
[2017-03-05 18:41] LABS: PROTEIN/CREATININE RATIO 0.07
[2017-03-05 18:42] LABS: BASOPHILS % (AUTO) 0 % (0-10); EOSINOPHILS # (AUTO) 0.2 10^3/uL (0.0-0.3); EOSINOPHILS % (AUTO) 1 % (0-10); LYMPHOCYTES # (AUTO) 1.8 X 10^3 (1.0-4.0); LYMPHOCYTES % (AUTO) 15 % (12-44); MEAN CORPUSCULAR HEMOGLOBIN 29 PG (25-34); MEAN CORPUSCULAR HGB CONC 34 G/DL (32-36); MEAN CORPUSCULAR VOLUME 86 FL (80-99); MEAN PLATELET VOLUME 12.8 FL (7.4-10.4); MONOCYTES # (AUTO) 1.1 X 10^3 (0.0-1.0); MONOCYTES % (AUTO) 10 % (0-12); NEUTROPHILS # (AUTO) 8.7 X 10^3 (1.8-7.8); NEUTROPHILS % (AUTO) 74 % (42-75); PLATELET COUNT 130 10^3/uL (130-400); RED BLOOD COUNT 4.04 10^6/uL (4.35-5.85); RED CELL DISTRIBUTION WIDTH 14.4 % (10.0-14.5); WHITE BLOOD COUNT 11.8 10^3/uL (4.3-11.0)
[2017-03-05 19:01] LABS: ALANINE AMINOTRANSFERASE 22 U/L (0-55); ALBUMIN 3.3 G/DL (3.2-4.5); ANION GAP 12 MMOL/L (5-14); ASPARTATE AMINO TRANSFERASE 14 U/L (5-34); BILIRUBIN,TOTAL 0.4 MG/DL (0.1-1.0); BLOOD UREA NITROGEN 9 MG/DL (7-18); BUN/CREATININE RATIO 12; CALCIUM 8.6 MG/DL (8.5-10.1); CARBON DIOXIDE 18 MMOL/L (21-32); CHLORIDE 109 MMOL/L (98-107); CREATININE SERUM 0.74 MG/DL (0.60-1.30); GFR ESTIMATED > 60; GLUCOSE 95 MG/DL (70-105); POTASSIUM 3.4 MMOL/L (3.6-5.0); SODIUM 139 MMOL/L (135-145); TOTAL PROTEIN 5.9 G/DL (6.4-8.2); URIC ACID 6.6 MG/DL (2.6-7.2)
[2017-03-05] MEDS ORDERED: FAMOTIDINE 20MG/2ML IV (PEPCID) IVP ONE (19:15)
[2017-03-05] MEDS: ACETAMINOPHEN 500 MG TAB (TYLENOL) PO PRN (19:21)
--- NOTE | 2017-03-05 19:28 | History & Physical-OB ---
OB - Chief Complaint & HPI Date Date of Admission: Date of Admission: Chief Complaint/History OB-Reason for Admission/Chief: Mild preE Hx : 1 Hx Para: 0 Expected Date of Delivery: March 29, 2017 Other reason for admission: Swelling, 10 pound weight gain, elevations in blood pressure, severe headache. Admission Nurse Assessment Rev: Yes History of Labs O pos Antibody neg RNI RPR NR HBsAg NR HIV NR GC neg GBS neg Allergies and Home Medications Allergies Coded Allergies: Penicillins (Verified Allergy, Mild, 02/17/17) amoxicillin (Unverified Allergy, Mild, 02/17/17) Uncoded Allergies: SEASONAL ALLERGIES (Allergy, Mild, 04/30/13) Home Medications [id number]/Iron Fumarate/FA/Dss 1 Each Tablet, 1 EACH PO DAILY, (Reported) Sertraline HCl 25 Mg Tablet, 25 MG PO DAILY, (Reported) OB - History Hx of Present Care: Yes Ultrasounds: Normal mid trimester US Abnormal Ultrasound Findings: BPP 8/8 today with PACHECO decreased from last week to 6cm from 12cm Obstetrical Complications: Gestational Hypertension Obstetrical History Hx : 1 Hx Para: 0 Hx Total # of Abortions (Spona: 0 Delivery History Hx Blood Disorders: No Patient Past Medical History BMI 50.5 Immunizations Tetanus Booster (TDap): Less than 5yrs Date of Influenza Vaccine: Aug 27, 2016 OB - Admission Exam Physical Exam Vitals: Vital Signs 03/05/17 03/05/17 17:30 17:45 Temp 98.8 Pulse 101 Resp 18 B/P (MAP) 155/79 HEENT: NCAT Heart: Rhythm Normal Lungs: Clear Abdomen: Gravid Extremities: Edema (+2-3) Reflexes: Normal Cervical Dilatation: Fingertip Effacement: 50% Station: -2 Membranes: Intact Heart Rate: 130's Accelerations: Accelerations Present Decelerations: No Decelerations Short Term Variability: Present Advertising Agency Manager Variability: Average (6-25) Contractions on Admission: None Labs Laboratory Tests Test 03/05/17 17:33 03/05/17 18:30 Range/Units Urine Color YELLOW Urine Clarity SLIGHTLY CLOUDY Urine pH 5 5-9 Urine Specific [place] 1.025 H 1.016-1.022 Urine Protein 18 H 6-12 MG/DL Urine Glucose (UA) NEGATIVE NEGATIVE Urine Ketones NEGATIVE NEGATIVE Urine Nitrite NEGATIVE NEGATIVE Urine Bilirubin NEGATIVE NEGATIVE Urine Urobilinogen 1 NORMAL MG/DL Urine Leukocyte Esterase 3+ H NEGATIVE Urine RBC (Auto) NEGATIVE NEGATIVE Urine RBC NONE /HPF Urine WBC 25-50 H /HPF Urine Squamous Epithelial Cells 25-50 H /HPF Urine Crystals NONE /LPF Urine Bacteria FEW H /HPF Urine Casts NONE /LPF Urine Mucus NEGATIVE /LPF Urine Culture Indicated YES Urine Creatinine 263 H 30-125 MG/DL Urine Protein/Creatinine Ratio 0.07 White Blood Count 11.8 H 4.3-11.0 10^3/uL Red Blood Count 4.04 L 4.35-5.85 10^6/uL Hemoglobin 11.7 11.5-16.0 G/DL Hematocrit 35 35-52 % Mean Corpuscular Volume 86 80-99 FL Mean Corpuscular Hemoglobin 29 25-34 PG Mean Corpuscular Hemoglobin Concent 34 32-36 G/DL Red Cell Distribution Width 14.4 10.0-14.5 % Platelet Count 130 130-400 10^3/uL Mean Platelet Volume 12.8 H 7.4-10.4 FL Neutrophils (%) (Auto) 74 42-75 % Lymphocytes (%) (Auto) 15 12-44 % Monocytes (%) (Auto) 10 0-12 % Eosinophils (%) (Auto) 1 0-10 % Basophils (%) (Auto) 0 0-10 % Neutrophils # (Auto) 8.7 H 1.8-7.8 X 10^3 Lymphocytes # (Auto) 1.8 1.0-4.0 X 10^3 Monocytes # (Auto) 1.1 H 0.0-1.0 X 10^3 Eosinophils # (Auto) 0.2 0.0-0.3 10^3/uL Basophils # (Auto) 0.0 0.0-0.1 10^3/uL Sodium Level 139 135-145 MMOL/L Potassium Level 3.4 L 3.6-5.0 MMOL/L Chloride Level 109 H 98-107 MMOL/L Carbon Dioxide Level 18 L 21-32 MMOL/L Anion Gap 12 5-14 MMOL/L Blood Urea Nitrogen 9 7-18 MG/DL Creatinine 0.74 0.60-1.30 MG/DL Estimat Glomerular Filtration Rate > 60 BUN/Creatinine Ratio 12 Glucose Level 95 70-105 MG/DL Uric Acid 6.6 2.6-7.2 MG/DL Calcium Level 8.6 8.5-10.1 MG/DL Total Bilirubin 0.4 0.1-1.0 MG/DL Aspartate Amino Transf (AST/SGOT) 14 5-34 U/L Alanine Aminotransferase (ALT/SGPT) 22 0-55 U/L Alkaline Phosphatase 107 40-136 U/L Total Protein 5.9 L 6.4-8.2 G/DL Albumin 3.3 3.2-4.5 G/DL OB - Assessment/Plan/Diagnosis Plan Other Plan Patient is being kept for monitoring overnight. Will proceed with delivery if worsening signs, otherwise urine protein to creatine ratio is not at preE levels yet. And will consider sending home if continues to be stable in the AM. Discharge Diagnosis Diagnosis: 21 yo @ 36.4 GHTN- without significant protienuria BMI 50 GBS neg EFREM LOAIZA DO Mar 05, 2017 7:28 pm
--- NOTE | 2017-03-05 19:30 | Diagnostic Imaging Report ---
INDICATION: Gestational hypertension. EXAM: biophysical profile performed in routine fashion. FINDINGS: The fetus scored 2/2 in breathing, movements, posture and tone, and amniotic fluid index. Amniotic fluid index is 6.7 cm. The fetus is in cephalic presentation. heart rate is 152 beats per minute. IMPRESSION: biophysical profile score is 8 out of 8. Dictated by: Dictated on workstation # [id number]
[2017-03-06 00:07] VITALS: BP 133/59
[2017-03-06 03:23] VITALS: BP 117/57
[2017-03-06 03:27] VITALS: BP 112/55
[2017-03-06 06:17] VITALS: BP 147/73
[2017-03-06 06:49] VITALS: BP 137/65
[2017-03-06] MEDS: ACETAMINOPHEN 500 MG TAB (TYLENOL) PO PRN (07:03)
[2017-03-06 07:41] VITALS: BP 120/61
--- NOTE | 2017-03-06 08:42 | Progress Note-Standard ---
Standard Progress Note Progress Notes/Assess & Plan Progress/Assessment & Plan Patient doing well this AM. Reports headache is gone. BP have been stable overnight. NST reactive BL 135 moderate variability + accels no decels TOCO: rare contractions Vital Sign - Last 24 Hours 03/05/17 03/05/17 03/05/17 03/05/17 17:30 17:45 18:00 18:30 Temp 98.8 Pulse 106 101 104 98 Resp 18 18 18 B/P (MAP) 139/63 155/79 127/66 140/67 03/05/17 03/05/17 03/05/17 03/05/17 19:10 19:27 19:50 20:39 Pulse 102 98 94 Resp 20 18 18 B/P (MAP) 123/60 128/60 126/58 O2 Delivery Room Air Room Air Room Air 03/05/17 03/05/17 03/05/17 03/06/17 20:58 21:34 22:15 00:07 Temp 97.5 97.4 Pulse 97 93 86 Resp 18 18 18 B/P (MAP) 124/59 127/60 133/59 O2 Delivery Room Air Room Air Room Air 03/06/17 03/06/17 03/06/17 03/06/17 03:15 03:23 03:27 06:17 Temp 97.6 Pulse 81 73 80 Resp 18 18 18 B/P (MAP) 117/57 112/55 147/73 O2 Delivery Room Air Room Air Room Air 03/06/17 03/06/17 06:18 06:49 Temp 98.2 Pulse 85 Resp 18 B/P (MAP) 137/65 O2 Delivery Room Air Diagnosis: 36 week IUP GHTN P: Continue PreE precautions Keep follow up outpatient visit tomorrow. EFREM LOAIZA DO Mar 06, 2017 8:42 am
== END 2017-03-06 09:25 | disposition home or self-care (01) ==
LOC: LDRP 17:08 → WSo 17:08
PROVIDERS: ATTEND Obstetrics & Gynecology
DX: O13.3 Gestational [pregnancy-induced] hypertension without significant proteinuria, third trimester (principal); Z3A.36 36 weeks gestation of pregnancy
CPT/HCPCS: 36415; 76819; 80053; 81000; 82570; 84156; 84550; 85025; 87088; 96374; 99214

== ENCOUNTER 2017-03-10 21:15 | Outpatient (CLI) | payer MEDICAID ==
[~2017-03-10] VITALS: Ht 162.6 cm; Wt 129.5 kg
[2017-03-10 21:40] VITALS: BP 133/82
[2017-03-10 21:47] LABS: BILIRUBIN,URINE NEGATIVE (NEGATIVE); KETONES,URINE 1+ (NEGATIVE); LEUKOCYTE ESTERASE ,URINE 3+ (NEGATIVE); NITRITE,URINE NEGATIVE (NEGATIVE); PH,URINE 6.5 (5-9); PROTEIN,URINE 2+ (NEGATIVE); UROBILINOGEN,URINE NORMAL (NORMAL)
[2017-03-10 21:55] LABS: SQUAMOUS EPITHELIAL CELL,UR 0-2 /HPF
[2017-03-10 22:00] VITALS: BP 120/60
[2017-03-10] MEDS ORDERED: ACETAMINOPHEN 500 MG TAB (TYLENOL) ONE (22:06)
[2017-03-10] MEDS ORDERED: ACETAMINOPHEN 500 MG TAB (TYLENOL) PO ONE (22:15)
[2017-03-10 22:35] VITALS: BP 132/62
[2017-03-10 22:43] LABS: BILIRUBIN,URINE NEGATIVE (NEGATIVE); KETONES,URINE NEGATIVE (NEGATIVE); LEUKOCYTE ESTERASE ,URINE 1+ (NEGATIVE); NITRITE,URINE NEGATIVE (NEGATIVE); PH,URINE 6.5 (5-9); PROTEIN,URINE 2+ (NEGATIVE); UROBILINOGEN,URINE NORMAL (NORMAL)
[2017-03-10 22:48] VITALS: BP 138/62
[2017-03-10 22:50] VITALS: BP 171/89
[2017-03-10 22:54] LABS: WBC,URINE 0-2 /HPF
[2017-03-10] MEDS ORDERED: ONDANSETRON 4 MG (ZOFRAN) ORAL DISSOLVE TAB ONE (23:00)
[2017-03-10 23:09] VITALS: BP 136/66
[2017-03-10] MEDS ORDERED: ONDANSETRON 4 MG (ZOFRAN) ORAL DISSOLVE TAB PO ONE (23:15)
--- NOTE | 2017-03-13 17:25 | Physician Query-Final Dx ---
MATT GRUBBS 03/13/17 1725: Clinic Account Progress/Dx Physician Query: Please give diagnosis Date of Service Mar 10, 2017 at 21:15 SARAI COOLEY DO 03/21/177: Clinic Account Progress/Dx DIAGNOSIS: Diagnosis third trimester , headache proteinuria without significant hypertension MATT GRUBBS Mar 13, 2017 17:25 SARAI COOLEY DO Mar 21, 2017 20:47
== END 2017-03-10 23:17 | disposition home or self-care (01) ==
LOC: WSo 21:15 → LDRP 21:18 → WSo 23:17
PROVIDERS: ATTEND Obstetrics & Gynecology
DX: O12.13 Gestational proteinuria, third trimester (principal); O99.89 Other specified diseases and conditions complicating pregnancy, childbirth and the puerperium; R51 Headache; Z3A.37 37 weeks gestation of pregnancy
CPT/HCPCS: 81000; 87088; 99214

== ENCOUNTER 2017-03-15 20:21 | Inpatient (IN) | payer MEDICAID ==
[~2017-03-15] VITALS: Ht 162.6 cm; Wt 129.5 kg
[2017-03-15 20:00] VITALS: BP 168/77
[2017-03-15] MEDS ORDERED: MISOPROSTOL 100 MCG (CYTOTEC) TAB PO ONE (21:00)
[2017-03-15] MEDS ORDERED: SERTRALINE 50 MG (ZOLOFT) TABLET PO ONE (21:00)
[2017-03-15] MEDS ORDERED: ACETAMINOPHEN 325 MG TABLET/CAPLET (TYLENOL) PO PRN (21:00)
[2017-03-15] MEDS ORDERED: TERBUTALINE INJ 1 MG/ML (BRETHINE) AMP SC PRN (21:00)
[2017-03-15] MEDS: LACTATED RINGERS 500 ML IV SCH (21:20)
[2017-03-15 21:57] LABS: BASOPHILS % (AUTO) 0 % (0-10); EOSINOPHILS # (AUTO) 0.1 10^3/uL (0.0-0.3); EOSINOPHILS % (AUTO) 1 % (0-10); LYMPHOCYTES # (AUTO) 2.2 X 10^3 (1.0-4.0); LYMPHOCYTES % (AUTO) 22 % (12-44); MEAN CORPUSCULAR HEMOGLOBIN 29 PG (25-34); MEAN CORPUSCULAR HGB CONC 34 G/DL (32-36); MEAN CORPUSCULAR VOLUME 84 FL (80-99); MEAN PLATELET VOLUME 12.2 FL (7.4-10.4); MONOCYTES # (AUTO) 0.9 X 10^3 (0.0-1.0); MONOCYTES % (AUTO) 9 % (0-12); NEUTROPHILS # (AUTO) 6.6 X 10^3 (1.8-7.8); NEUTROPHILS % (AUTO) 68 % (42-75); PLATELET COUNT 145 10^3/uL (130-400); RED BLOOD COUNT 4.17 10^6/uL (4.35-5.85); RED CELL DISTRIBUTION WIDTH 14.2 % (10.0-14.5); WHITE BLOOD COUNT 9.8 10^3/uL (4.3-11.0)
[2017-03-15 22:00] VITALS: BP 159/80
[2017-03-15 23:00] VITALS: BP 139/60
[2017-03-16] VITALS (62 sets, daily range): BP systolic 113–212; BP diastolic 58–126
[2017-03-16] MEDS: D5 LR IV SOLUTION 1,000 ML IV SCH ×3 (00:30→16:14)
[2017-03-16] MEDS ORDERED: ACETAMINOPHEN 500 MG TAB (TYLENOL) PO PRN (00:30)
[2017-03-16] MEDS ORDERED: MISOPROSTOL 100 MCG (CYTOTEC) TAB PO SCH (01:00)
[2017-03-16] MEDS ORDERED: FAMO-119 PO (01:31)
[2017-03-16] MEDS: LACTATED RINGERS 500 ML IV SCH ×2 (01:42→19:30)
[2017-03-16] MEDS ORDERED: CALCIUM CARBONATE 500 MG (TUMS) TAB.CHEW PO ONE (02:30)
[2017-03-16] MEDS ORDERED: OXYTOCIN/NORMAL SALINE 500 ML IV SCH ×2 (07:08→20:13)
[2017-03-16] MEDS: CATHETER FLUSH 10 ML SYR IV SCH ×2 (08:11→14:10)
[2017-03-16] MEDS ORDERED: FAMOTIDINE 20MG/2ML IV (PEPCID) ONE (08:46)
[2017-03-16] MEDS ORDERED: ONDANSETRON 4 MG/2 ML (SDV) Z0FRAN ONE ×2 (08:47→19:44)
[2017-03-16] MEDS: ONDANSETRON 4 MG/2 ML (SDV) Z0FRAN IVP PRN ×3 (08:56→22:20)
[2017-03-16] MEDS ORDERED: FAMOTIDINE 20MG/2ML IV (PEPCID) IVP ONE (09:00)
[2017-03-16] MEDS ORDERED: SERTRALINE 25MG TABLET PO SCH (09:00)
--- NOTE | 2017-03-16 10:11 | History & Physical-OB ---
OB - Chief Complaint & HPI Date Date of Admission: Date of Admission: Mar 15, 2017 at 8:21 pm Chief Complaint/History OB-Reason for Admission/Chief: Induction of Labor Hx : 1 Hx Para: 0 Expected Date of Delivery: March 29, 2017 Gestational Age in Weeks: 38 Indication for induction: other (uncontrolled GHTN) Admission Nurse Assessment Rev: Yes History of Labs O pos Antibody neg RNI RPR NR HBsAg NR HIV NR GC neg GBS neg Allergies and Home Medications Allergies Coded Allergies: Penicillins (Verified Allergy, Mild, 02/17/17) amoxicillin (Unverified Allergy, Mild, 02/17/17) Uncoded Allergies: SEASONAL ALLERGIES (Allergy, Mild, 04/30/13) Home Medications Famotidine 20 Mg Tablet, 20 MG PO DAILY PRN for HEARTBURN, (Reported) [id number]/Iron Fumarate/FA/Dss 1 Each Tablet, 1 EACH PO DAILY, (Reported) Sertraline HCl 25 Mg Tablet, 25 MG PO DAILY, (Reported) OB - History Hx of Present Care: Yes Ultrasounds: Normal mid trimester US Obstetrical Complications: Gestational Hypertension Medical Complications: None Delivery History Hx Blood Disorders: No Adverse Rxn to Tranfusion: No Patient Past Medical History BMI 50.5 Social History/Family History HIV/AIDS: No Recent Infectious Disease Expo: No Sexually Transmitted Disease: No Alcohol Use: Denies Use Recreational Drug Use: No Immunizations Hepatitis A: No Hepatitis B: Yes Tetanus Booster (TDap): Less than 5yrs Date of Influenza Vaccine: Aug 27, 2016 OB - Admission Exam Physical Exam Vitals: Vital Signs 03/16/17 03/16/17 03/16/17 02:30 08:00 09:45 Temp 99.2 Pulse 62 Resp 20 B/P (MAP) 180/101 Pulse Ox 99 O2 Delivery Room Air O2 Flow Rate 10.00 HEENT: NCAT Heart: Rhythm Normal Lungs: Clear Abdomen: Gravid Extremities: Normal Reflexes: Normal Cervical Dilatation: 1cm Effacement: 75% Station: -1 Membranes: Intact Heart Rate: 130's Accelerations: Accelerations Present Decelerations: No Decelerations Short Term Variability: Present Penitentiary Variability: Average (6-25) Contractions on Admission: 6-10 Minutes Apart Intensity: Mild Garcia Scoring Tool (Modified) Dilation (cm): 1-2cm (1) Effacement (%): 51-79% (2) Descent/Station: -1,0 (2) Cervix Consistency: Soft (2) Cervix Position: Anterior (2) Garcia Score: 9 Labs Laboratory Tests Test 03/15/17 21:20 Range/Units White Blood Count 9.8 4.3-11.0 10^3/uL Red Blood Count 4.17 L 4.35-5.85 10^6/uL Hemoglobin 12.1 11.5-16.0 G/DL Hematocrit 35 35-52 % Mean Corpuscular Volume 84 80-99 FL Mean Corpuscular Hemoglobin 29 25-34 PG Mean Corpuscular Hemoglobin Concent 34 32-36 G/DL Red Cell Distribution Width 14.2 10.0-14.5 % Platelet Count 145 130-400 10^3/uL Mean Platelet Volume 12.2 H 7.4-10.4 FL Neutrophils (%) (Auto) 68 42-75 % Lymphocytes (%) (Auto) 22 12-44 % Monocytes (%) (Auto) 9 0-12 % Eosinophils (%) (Auto) 1 0-10 % Basophils (%) (Auto) 0 0-10 % Neutrophils # (Auto) 6.6 1.8-7.8 X 10^3 Lymphocytes # (Auto) 2.2 1.0-4.0 X 10^3 Monocytes # (Auto) 0.9 0.0-1.0 X 10^3 Eosinophils # (Auto) 0.1 0.0-0.3 10^3/uL Basophils # (Auto) 0.0 0.0-0.1 10^3/uL OB - Assessment/Plan/Diagnosis Assessment Assessment: induction of labor Plan Plan: Induction Induction Method: per Misoprostol Protocol Discharge Diagnosis Diagnosis: 21 yo @ 38 weeks gestation Uncontrolled GHTN GBS neg BMI 49 EFREM LOAIZA DO Mar 16, 2017 10:11 am
[2017-03-16] MEDS ORDERED: fentaNYL INJECTION 100 MCG/2 ML AMP ONE ×2 (14:53→18:49)
[2017-03-16] MEDS ORDERED: LIDOCAINE PF 2% 10 ML (XYLOCAINE) AMP ONE ×2 (14:53→18:50)
[2017-03-16] MEDS ORDERED: BUPIVACAINE 0.25% 30 ML (SENSORCAINE) VIAL ONE ×2 (14:53→18:50)
[2017-03-16] MEDS ORDERED: SUFENTA 0.6MCG/ML BUPIVA 0.125 100 ML ONE (14:54)
[2017-03-16] MEDS ORDERED: LACTATED RINGERS 1,000 ML IV ONE (16:38)
[2017-03-16] MEDS ORDERED: NALOXONE 0.4 MG/ML 1 ML (NARCAN) VIAL IV PRN (16:45)
[2017-03-16] MEDS ORDERED: diphenhydrAMINE 50 MG/ML INJ (BENADRYL) IV PRN (16:45)
[2017-03-16] MEDS ORDERED: fentaNYL INJECTION 100 MCG/2 ML AMP IVP ONE (16:45)
[2017-03-16] MEDS ORDERED: LIDOCAINE PF 2% 10 ML (XYLOCAINE) AMP INJ ONE (16:45)
[2017-03-16] MEDS ORDERED: EPIDURAL (SUFENTA 0.6MCG/ML BUPIVA 0.125%) 100 ML BAG EPI SCH (16:45)
[2017-03-16] MEDS ORDERED: BUPIVACAINE 0.25% 30 ML (SENSORCAINE) VIAL INJ ONE (16:45)
[2017-03-16] MEDS ORDERED: CATHETER FLUSH 10 ML SYR IV PRN (16:45)
[2017-03-16] MEDS ORDERED: ONDANSETRON 4 MG/2 ML (SDV) Z0FRAN IV PRN (16:45)
[2017-03-16] MEDS ORDERED: hydrALAZINE (APESOLINE) 20 MG/ML VIAL IV NR (16:54)
[2017-03-16] MEDS ORDERED: hydrALAZINE (APESOLINE) 20 MG/ML VIAL IV PRN (17:00)
[2017-03-16] MEDS ORDERED: LACTATED RINGERS 1,000 ML IV PRN (18:33)
--- NOTE | 2017-03-16 18:43 | Progress Note-Standard ---
Standard Progress Note Progress Notes/Assess & Plan Progress/Assessment & Plan This 21-year-old female was brought in last evening for induction of labor due to uncontrolled gestational hypertension. Overnight she was given Cytotec for cervical ripening and started on Pitocin this morning. AROM was performed at approximately 1130 this morning and internal scalp electrode was placed at that time due to difficulty with monitoring. The patient received an epidural this afternoon and obtained adequate pain control. On presentation her cervix was found to be 2 cm 70 percent effaced and -2 station, her most recent check at 641 p.m. has been 3 cm 70 percent effaced and -2 station. There is been a arrest in dilatation despite adequate contraction pattern noted with Pitocin. The fetus has also demonstrated a prolonged heart rate deceleration, and now is having intermittent variable decelerations as well. Overall reassurance is noted in the heart tracing and this is expressed the patient. However, the patient's blood pressure continues to rise to at times 190s over 100s. I discussed with the patient indication of moving forward at this point would be arrest in dilatation, and worsening blood pressures. She is agreeable to proceed, risk of the surgery is discussed the patient in detail including risk of bleeding, infection, damaging surrounding structures including the infant, risk from anesthesia, and even . She demonstrates an understanding and all of her questions are answered consent is obtained and we will proceed with primary once staff and anesthesia is available. EFREM LOAIZA DO Mar 16, 2017 18:43
[2017-03-16] MEDS ORDERED: METOCLOPRAMIDE INJ 10 MG/2 ML (REGLAN) IV ONE (18:45)
[2017-03-16] MEDS ORDERED: CITRIC ACID/SOB CIT (BICITRA) 30 ML UDC PO ONE (18:45)
[2017-03-16] MEDS ORDERED: FAMOTIDINE 20MG/2ML IV (PEPCID) IV ONE (18:45)
[2017-03-16] MEDS ORDERED: ceFAZolin 2 GM/50 ML NS 50 ML IV ONE (18:45)
[2017-03-16] MEDS ORDERED: OXYTOCIN/NORMAL SALINE 1,000 ML IV ONE (19:43)
[2017-03-16] MEDS ORDERED: KETOROLAC 30 MG/ML VIAL ONE (19:48)
[2017-03-16] MEDS ORDERED: MEASLES,MUMPS,RUBELLA 1 EA INJ SC SCH (20:15)
[2017-03-16] MEDS ORDERED: TETANUS,DIPTH,PERTUSS P/F (BOOSTRIX) 0.5 ML VIAL IM SCH (20:15)
[2017-03-16] MEDS ORDERED: ALPRAZolam 0.25 MG (XANAX) TAB PO PRN (20:15)
[2017-03-16] MEDS: HYDROmorphone (DILAUDID) 2 MG/ML VIAL IVP PRN ×2 (20:21→23:33)
[2017-03-16] MEDS ORDERED: DOCU100C37 PO (20:23)
[2017-03-16] MEDS ORDERED: HYDR-3812 PO (20:23)
[2017-03-16] MEDS ORDERED: IBUP-1780 PO (20:23)
--- NOTE | 2017-03-16 20:24 | Discharge Inst-Women's Service ---
Discharge Inst-Women's Serv Depart Medication/Instructions New, Converted or Re-Newed RX: RX on Chart Consults/Follow Up Additional Follow Up: Yes Activity Activity: Activity as Tolerated Driving Instructions: No Driving for 1 Week NO SMOKING: NO SMOKING Nothing Inside Vagina: No Douching, No [place], No Tampons Diet Discharge Diet: No Restrictions Symptoms to Report to : Bleeding Excessive, Pain Increased, Fever Over 101 Degrees F, Vaginal Bleeding Increase, Questions/Concerns For Any Problems or Questions: Contact Your Physician Skin/Wound Care Infection Signs and Symptoms: Increased Redness, Foul Odor of Wound, Increased Drainage, Skin Itchy or Has a Rash, Increased Swelling, Temperature Above 101 F Operative Area Clean and Dry: Keep Incision Clean/Dry Stitches/[place]/Dermabond: Dermabond, Care of Stitches Bathing Instructions: EFREM Arenas DO Mar 16, 2017 8:24 pm
[2017-03-16] MEDS ORDERED: PATIENT MAY USE OWN MED,SINGLE MED PO SCH (21:00)
[2017-03-16] MEDS: HYDROcodone/APAP 5 MG/325 MG (LORTAB) TAB PO PRN (21:36)
--- NOTE | 2017-03-16 21:56 | Progress Note-Post Operative ---
Post-Operative Progess Note Surgeon (s)/Pharmacy Operations Specialist (s) Surgeon EFREM LOAIZA DO Pharmacy Operations Specialist: n/a Pre-Operative Diagnosis FTP Post-Operative Diagnosis same Post-Op Procedure Note Date of Procedure: Mar 16, 2017 Name of Procedure Performed: PLTCS Description of the Procedure: see dictation Findings of the Procedure see dictation Anesthesia Type see dictation Estimated blood loss (mL): 800 Specimen(s) collected/removed placenta EFREM LOAIZA DO Mar 16, 2017 9:56 pm
[2017-03-16] MEDS ORDERED: CARBOPROST (HEMABATE) 250 MCG/ML AMP IM ONE (23:30)
[2017-03-17] MEDS: KETOROLAC 30 MG/ML VIAL IVP SCH ×3 (02:05→15:04)
[2017-03-17] MEDS: HYDROcodone/APAP 5 MG/325 MG (LORTAB) TAB PO PRN ×4 (02:06→18:43)
[2017-03-17] MEDS: DOCUSATE SODIUM 100 MG (COLACE) CAP PO SCH ×3 (02:06→21:09)
[2017-03-17 02:30] VITALS: BP 146/74
[2017-03-17] MEDS ORDERED: OXYTOCIN/NORMAL SALINE 500 ML IV SCH (04:00)
[2017-03-17 06:00] VITALS: BP 133/76
[2017-03-17 06:21] LABS: BASOPHILS % (AUTO) 0 % (0-10); EOSINOPHILS % (AUTO) 0 % (0-10); LYMPHOCYTES # (AUTO) 1.6 X 10^3 (1.0-4.0); LYMPHOCYTES % (AUTO) 13 % (12-44); MEAN CORPUSCULAR HEMOGLOBIN 29 PG (25-34); MEAN CORPUSCULAR HGB CONC 33 G/DL (32-36); MEAN CORPUSCULAR VOLUME 86 FL (80-99); MEAN PLATELET VOLUME 12.3 FL (7.4-10.4); MONOCYTES # (AUTO) 0.9 X 10^3 (0.0-1.0); MONOCYTES % (AUTO) 7 % (0-12); NEUTROPHILS # (AUTO) 10.3 X 10^3 (1.8-7.8); NEUTROPHILS % (AUTO) 80 % (42-75); PLATELET COUNT 120 10^3/uL (130-400); RED BLOOD COUNT 3.21 10^6/uL (4.35-5.85); RED CELL DISTRIBUTION WIDTH 14.1 % (10.0-14.5); WHITE BLOOD COUNT 12.8 10^3/uL (4.3-11.0)
[2017-03-17 08:00] VITALS: BP 127/74
--- NOTE | 2017-03-17 09:17 | Postpartum Progress Note ---
Post Op Post-operative Day #1 Subjective: Patient is without complaints. Ambulating, voiding after castelan removed. Tolerating a regular diet without nausea or vomiting. Normal lochia. Pain is well controlled with oral pain medications. Passing flatus. Breast/bottle feeding (reports hypoglycemia for infant). Denies si/sx pre-eclampsia. Objective: VS - Last 72 Hours, by Label 03/15/17 03/15/17 03/15/17 03/15/17 20:00 20:30 21:00 21:30 Temp 98.0 Pulse 95 Resp 20 B/P (MAP) 168/77 O2 Delivery Room Air Room Air Room Air Room Air 03/15/17 03/15/17 03/15/17 03/16/17 22:00 23:00 23:30 00:01 Temp 96.9 Pulse 76 68 72 Resp 20 20 18 B/P (MAP) 159/80 139/60 145/67 O2 Delivery Room Air Room Air Room Air Room Air 03/16/17 03/16/17 03/16/17 03/16/17 00:30 01:00 01:30 02:00 Temp 97.7 Pulse 75 69 Resp 18 20 B/P (MAP) 142/82 157/75 O2 Delivery Room Air Room Air Room Air Non Rebreather O2 Flow Rate 10.00 03/16/17 03/16/17 03/16/17 03/16/17 02:30 03:00 04:00 04:30 Temp 97.7 Pulse 72 73 Resp 18 20 B/P (MAP) 144/69 129/82 O2 Delivery Non Rebreather Room Air Room Air Room Air O2 Flow Rate 10.00 03/16/17 03/16/17 03/16/17 03/16/17 05:00 06:00 06:30 06:40 Pulse 68 71 69 Resp 20 20 18 B/P (MAP) 138/75 135/76 191/101 O2 Delivery Room Air Room Air Room Air Room Air 03/16/17 03/16/17 03/16/17 03/16/17 06:42 07:00 07:50 08:00 Temp 97.7 99.2 Pulse 80 78 70 Resp 20 20 B/P (MAP) 175/85 169/83 131/72 O2 Delivery Room Air Room Air Room Air 03/16/17 03/16/17 03/16/17 4/20/17 08:15 08:30 08:45 09:00 Pulse 70 80 68 Resp 20 20 20 20 B/P (MAP) 132/62 141/84 145/81 O2 Delivery Room Air Room Air Room Air Room Air 03/16/17 03/16/17 03/16/17 03/16/17 09:15 09:30 09:45 10:00 Temp 97.9 Pulse 62 67 62 64 Resp 20 20 20 20 B/P (MAP) 129/83 146/85 180/101 143/83 Pulse Ox 99 99 O2 Delivery Room Air Room Air Room Air Room Air 03/16/17 03/16/17 03/16/17 03/16/17 10:15 10:30 10:45 11:00 Pulse 64 67 63 64 Resp 20 20 20 20 B/P (MAP) 138/80 142/81 145/75 136/73 Pulse Ox 99 98 100 98 O2 Delivery Room Air Room Air Room Air Room Air 03/16/17 03/16/17 03/16/17 03/16/17 11:15 11:30 11:45 12:00 Temp 98.7 Pulse 64 64 76 70 Resp 20 20 20 20 B/P (MAP) 142/70 155/72 113/91 120/86 Pulse Ox 97 97 97 99 O2 Delivery Room Air Room Air Room Air Room Air 03/16/17 03/16/17 03/16/17 03/16/17 12:15 12:30 12:45 13:00 Temp 98.5 Pulse 74 83 63 71 Resp 20 20 20 20 B/P (MAP) 164/86 166/91 161/79 Pulse Ox 99 100 100 99 O2 Delivery Room Air Room Air Room Air Room Air 03/16/17 03/16/17 03/16/17 03/16/17 13:15 13:30 13:45 14:00 Temp 98.4 Pulse 62 61 60 61 Resp 20 20 20 20 B/P (MAP) 164/86 149/85 139/67 133/75 Pulse Ox 98 99 97 97 O2 Delivery Room Air Room Air Room Air Room Air 03/16/17 03/16/17 03/16/17 03/16/17 14:15 14:30 14:45 15:00 Temp 99.0 Pulse 64 59 68 65 Resp 20 20 20 20 B/P (MAP) 138/78 142/80 133/85 174/112 Pulse Ox 98 99 99 99 O2 Delivery Room Air Room Air Room Air Room Air 03/16/17 03/16/17 03/16/17 03/16/17 15:15 15:30 15:30 15:38 Temp 97.5 Pulse 80 62 92 71 Resp 20 20 20 20 B/P (MAP) 145/81 186/97 185/102 194/111 Pulse Ox 100 100 99 100 O2 Delivery Room Air Room Air Room Air Room Air 03/16/17 03/16/17 03/16/17 03/16/17 15:45 15:49 15:52 15:53 Pulse 80 60 67 70 Resp 20 20 20 20 B/P (MAP) 190/98 178/85 171/96 164/100 Pulse Ox 100 99 99 100 O2 Delivery Room Air Room Air Room Air Room Air 03/16/17 03/16/17 03/16/17 03/16/17 16:00 16:00 16:15 16:30 Temp 97.0 Pulse 86 94 70 68 Resp 20 20 20 20 B/P (MAP) 162/106 212/126 130/58 177/81 Pulse Ox 98 98 100 100 O2 Delivery Room Air Room Air Room Air Room Air 03/16/17 03/16/17 03/16/17 03/16/17 16:45 17:00 17:15 17:30 Pulse 70 67 62 60 Resp 20 20 20 20 B/P (MAP) 195/89 132/63 132/61 130/63 Pulse Ox 100 100 100 100 O2 Delivery Room Air Room Air Room Air Room Air 03/16/17 03/16/17 03/16/17 03/16/17 17:45 18:00 18:15 18:30 Temp 97.6 Pulse 66 61 73 73 Resp 20 20 20 20 B/P (MAP) 142/79 151/69 148/77 183/89 Pulse Ox 100 100 99 97 O2 Delivery Room Air Room Air Room Air Room Air 03/16/17 03/16/17 03/16/17 03/16/17 18:45 19:00 19:12 21:00 Temp 98.6 Pulse 77 88 64 Resp 20 20 20 B/P (MAP) 137/76 145/87 155/67 Pulse Ox 98 98 O2 Delivery Room Air Room Air Room Air Room Air 03/16/17 03/16/17 03/16/17 03/16/17 21:39 22:15 23:19 23:50 Temp 98.7 96.7 Pulse 65 100 100 66 Resp 17 18 18 18 B/P (MAP) 151/95 174/82 169/89 155/85 Pulse Ox 99 60 69 100 O2 Delivery Room Air Room Air Room Air Room Air 03/17/17 03/17/17 03/17/17 02:30 06:00 08:00 Temp 97.6 97.8 96.8 Pulse 76 78 70 Resp 18 18 20 B/P (MAP) 146/74 133/76 127/74 Pulse Ox 98 98 97 O2 Delivery Room Air Room Air Room Air Physical Exam: General - Alert and oriented, no apparent distress Abdomen - Soft, appropriately tender to palpation, non-distended, fundus firm at umbilicus Incision - clean, dry and intact; no erythema or induration, no drainage Extremities - 1+ bilat pitting LE edema, negative Kwaku's bilaterally Laboratory Tests Test 03/17/17 05:52 Range/Units White Blood Count 12.8 H 4.3-11.0 10^3/uL Red Blood Count 3.21 L 4.35-5.85 10^6/uL Hemoglobin 9.2 #L 11.5-16.0 G/DL Hematocrit 28 L 35-52 % Mean Corpuscular Volume 86 80-99 FL Mean Corpuscular Hemoglobin 29 25-34 PG Mean Corpuscular Hemoglobin Concent 33 32-36 G/DL Red Cell Distribution Width 14.1 10.0-14.5 % Platelet Count 120 L 130-400 10^3/uL Mean Platelet Volume 12.3 H 7.4-10.4 FL Neutrophils (%) (Auto) 80 H 42-75 % Lymphocytes (%) (Auto) 13 12-44 % Monocytes (%) (Auto) 7 0-12 % Eosinophils (%) (Auto) 0 0-10 % Basophils (%) (Auto) 0 0-10 % Neutrophils # (Auto) 10.3 H 1.8-7.8 X 10^3 Lymphocytes # (Auto) 1.6 1.0-4.0 X 10^3 Monocytes # (Auto) 0.9 0.0-1.0 X 10^3 Eosinophils # (Auto) 0.0 0.0-0.3 10^3/uL Basophils # (Auto) 0.0 0.0-0.1 10^3/uL Assessment: 21 y/o post-operative day # 1, status post PLTCS for arrest of latent labor after IOL for gHTN. Recovering well, hemodynamically stable Acute blood loss anemia Hgb 9.2 Class III obesity 49 Plan: Routine post-operative care. Encourage breast feeding. Encourage ambulation. VTE prophylaxis: SCDs, lovenox given multiple risk factors Watch BPs carefully - had multiple severe range during labor/delivery but none since 0000. Will watch for worsening si/sx pre-eclampsia. Will need 1 wk BP/ incision check. Ferrous sulfate supplementation. Plan for discharge POD#2-3. Vitals - Labs Vital Signs - I&O Vital Signs Date Time Temp Pulse Resp B/P (MAP) Pulse Ox O2 Delivery O2 Flow Rate FiO2 03/17/17 08:00 96.8 70 20 127/74 97 Room Air 03/17/17 06:00 97.8 78 18 133/76 98 Room Air 03/17/17 02:30 97.6 76 18 146/74 98 Room Air 03/16/17 23:50 66 18 155/85 100 Room Air 03/16/17 23:19 100 18 169/89 69 Room Air 03/16/17 22:15 96.7 100 18 174/82 60 Room Air 03/16/17 21:39 98.7 65 17 151/95 99 Room Air 03/16/17 21:00 Room Air 03/16/17 19:12 64 20 155/67 Room Air 03/16/17 19:00 98.6 88 20 145/87 98 Room Air 03/16/17 18:45 77 20 137/76 98 Room Air 03/16/17 18:30 97.6 73 20 183/89 97 Room Air 03/16/17 18:15 73 20 148/77 99 Room Air 03/16/17 18:00 61 20 151/69 100 Room Air 03/16/17 17:45 66 20 142/79 100 Room Air 03/16/17 17:30 60 20 130/63 100 Room Air 03/16/17 17:15 62 20 132/61 100 Room Air 03/16/17 17:00 67 20 132/63 100 Room Air 03/16/17 16:45 70 20 195/89 100 Room Air 03/16/17 16:30 97.0 68 20 177/81 100 Room Air 03/16/17 16:15 70 20 130/58 100 Room Air 03/16/17 16:00 94 20 212/126 98 Room Air 03/16/17 16:00 86 20 162/106 98 Room Air 03/16/17 15:53 70 20 164/100 100 Room Air 03/16/17 15:52 67 20 171/96 99 Room Air 03/16/17 15:49 60 20 178/85 99 Room Air 03/16/17 15:45 80 20 190/98 100 Room Air 03/16/17 15:38 71 20 194/111 100 Room Air 03/16/17 15:30 97.5 92 20 185/102 99 Room Air 03/16/17 15:30 62 20 186/97 100 Room Air 03/16/17 15:15 80 20 145/81 100 Room Air 03/16/17 15:00 65 20 174/112 99 Room Air 03/16/17 14:45 68 20 133/85 99 Room Air 03/16/17 14:30 99.0 59 20 142/80 99 Room Air 03/16/17 14:15 64 20 138/78 98 Room Air 03/16/17 14:00 61 20 133/75 97 Room Air 03/16/17 13:45 60 20 139/67 97 Room Air 03/16/17 13:30 61 20 149/85 99 Room Air 03/16/17 13:15 98.4 62 20 164/86 98 Room Air 03/16/17 13:00 71 20 161/79 99 Room Air 03/16/17 12:45 98.5 63 20 166/91 100 Room Air 03/16/17 12:30 83 20 164/86 100 Room Air 03/16/17 12:15 74 20 99 Room Air 03/16/17 12:00 70 20 120/86 99 Room Air 03/16/17 11:45 98.7 76 20 113/91 97 Room Air 03/16/17 11:30 64 20 155/72 97 Room Air 03/16/17 11:15 64 20 142/70 97 Room Air 03/16/17 11:00 64 20 136/73 98 Room Air 4/20/17 10:45 63 20 145/75 100 Room Air 03/16/17 10:30 67 20 142/81 98 Room Air 03/16/17 10:15 64 20 138/80 99 Room Air 03/16/17 10:00 97.9 64 20 143/83 99 Room Air 03/16/17 09:45 62 20 180/101 99 Room Air 03/16/17 09:30 67 20 146/85 Room Air 03/16/17 09:15 62 20 129/83 Room Air I & O 03/17/17 07:00 Intake Total 6450 ml Output Total 910 ml Balance 5540 ml Labs Laboratory Tests 03/17/17 05:52: White Blood Count 12.8H, Red Blood Count 3.21L, Hemoglobin 9.2#L, Hematocrit 28L , Mean Corpuscular Volume 86, Mean Corpuscular Hemoglobin 29, Mean Corpuscular Hemoglobin Concent 33, Red Cell Distribution Width 14.1, Platelet Count 120L, Mean Platelet Volume 12.3H, Neutrophils (%) (Auto) 80H, Lymphocytes (%) (Auto) 13, Monocytes (%) (Auto) 7, Eosinophils (%) (Auto) 0, Basophils (%) (Auto) 0, Neutrophils # (Auto) 10.3H, Lymphocytes # (Auto) 1.6, Monocytes # (Auto) 0.9, Eosinophils # (Auto) 0.0, Basophils # (Auto) 0.0 SABI ANTUNEZ MD Mar 17, 2017 09:17
[2017-03-17] MEDS: ENOXAPARIN 40 MG/0.4 ML (LOVENOX) SYR SC SCH (10:55)
[2017-03-17 12:00] VITALS: BP 124/70
[2017-03-17] MEDS: CATHETER FLUSH 10 ML SYR IV SCH ×2 (14:55→22:01)
[2017-03-17] MEDS ORDERED: IBUPROFEN 800 MG (MOTRIN) TAB PO ONE (15:07)
[2017-03-17] MEDS: IBUPROFEN 800 MG (MOTRIN) TAB PO SCH ×2 (15:11→21:09)
[2017-03-17 16:00] VITALS: BP 142/92
[2017-03-17] MEDS: FERROUS SULF 325 MG (IRON) TAB PO SCH (18:42)
--- NOTE | 2017-03-17 19:21 | OPERATIVE REPORT ---
DATE OF SERVICE: 03/16/2017 PREOPERATIVE DIAGNOSES: 1. A 21-year-old G1, P0 at 38 weeks gestation. 2. Failure to progress. 3. Gestational hypertension. 4. Obesity. POSTOPERATIVE DIAGNOSES: 1. A 21-year-old G1, P0 at 38 weeks gestation. 2. Failure to progress. 3. Gestational hypertension. 4. Obesity. 5. Post nuchal cord x 1. PROCEDURE: Primary low transverse section. SURGEON: Dr. Sea Cabrera. ANESTHESIA: Epidural which was bolused. ESTIMATED BLOOD LOSS: 800 cc. URINE OUTPUT: 250 cc, clear at the end of the procedure. FLUIDS: 2100 mL of lactated Ringer's solution. FINDINGS: A live male infant weighing 9 pounds, 15 ounces. Apgars of 8 and 9. Grossly appearing uterus, bilateral fallopian tubes and ovaries. SPECIMEN SENT: Placenta. INDICATIONS FOR PROCEDURE: Please see my preoperative progress note for complete details pertaining to the patient's indications for procedure. OPERATIVE REPORT IN DETAIL: The patient was then taken to the operating room where epidural analgesia was bolused and found to be adequate. She was placed in supine position with a leftward tilt, prepped and draped in the normal sterile fashion. Timeout was performed and anesthesia was tested. I then proceeded with making a Pfannenstiel skin incision using a knife and carried down to the underlying fascia using Bovie cautery. The fascial incision was extended laterally using Bovie cautery. The superior aspect of the fascial incision was then grasped with Bushra clamps, tilted upward and dissected off underlying rectus muscles. The inferior aspect of the fascial incision was then grasped with Bushra clamps and opened dissecting off the underlying rectus muscles. The rectus muscle was then dissected in the midline using Donahue scissors which exposed the peritoneum which I entered bluntly and extend using Bovie cautery with good visualization of the underlying bowel and bladder. I then placed the tia retractor into the peritoneal incision which offers excellent lateral sidewall retraction. The lower uterine segment is found to be thinned out. I make an incision to investigate the pneumoperitoneum and bluntly dissect this off the lower uterine segment creating a bladder flap. I then proceeded with myomotomy until membranes are visualized at which point I extend the uterine incision laterally and superiorly using bandage scissors. Membranes are already ruptured. There is a small amount of fluid expressed with entry into the intraamniotic sac. I then placed my hand beneath the 's head which with intrafundal pressure, the 's head is delivered through the incision where the nares and oropharynx were bulb suctioned. There is a nuchal cord reduced x 1. Anterior posterior shoulders are delivered and is then brought into the operative field where the cord is doubly clamped and cut and thus handed off to the awaiting health advisor. Cord blood is collected, three-vessel cord with intact placenta delivered spontaneously thereafter. IV Pitocin is initiated to stop the uterine retracting. Uterine fundus became firmer with bimanual massage. The uterus was then exteriorized and cleared of all endometrial clots and debris. I then closed the uterine incision using 0 Vicryl suture in a running locked fashion, a second layer of imbricating 0 Monocryl is placed. Excellent hemostasis was noted after doing so. I then placed the uterus back within the pelvis and copiously irrigated the pelvis using normal saline. There is no active bleeding noted from any of my dissection planes. I then placed Interceed anti-adhesive over my low transverse incision and proceeded with closing the peritoneum using 2-0 Vicryl suture in a running fashion. The rectus muscle was reapproximated using 3-0 Vicryl suture in interrupted fashion. The fascia was reapproximated using 0 Vicryl suture in a running fashion. The subcutaneous tissue was reapproximated using 3-0 plain in an interrupted subcutaneous stitch and the skin was reapproximated using 4-0 Monocryl in a running subcuticular. Dermabond was applied to the incision, sterile dressing is adhesed with white tape. The patient tolerated the procedure well and sent to recovery in stable condition. Lap and sponge counts correct at the end of the procedure. Two grams of Ancef were given preoperatively for infection prophylaxis. Job ID: [id number] DocumentID: [id number] Dictated Date: 03/16/2017 20:36:38 [place] Date: 03/17/2017 05:53:26 Dictated By: DO EBEN SCHMIDT
[2017-03-17 20:15] VITALS: BP 130/70
[2017-03-17] MEDS: SERTRALINE 25MG TABLET PO SCH (21:10)
[2017-03-18] VITALS: BP 130/68
[2017-03-18] MEDS: IBUPROFEN 800 MG (MOTRIN) TAB PO SCH ×3 (03:39→15:02)
[2017-03-18 04:25] VITALS: BP 138/65
[2017-03-18] MEDS: CATHETER FLUSH 10 ML SYR IV SCH (06:43)
--- NOTE | 2017-03-18 08:18 | Postpartum Progress Note ---
Post Op Post-operative Day #2 Subjective: Patient is without complaints. Ambulating, voiding. Tolerating a regular diet without nausea or vomiting. Normal lochia. Pain is well controlled with oral pain medications. Passing flatus. Bottle feeding primarily. No si/sx pre- eclampsia. Objective: VS - Last 72 Hours, by Label 03/15/17 03/15/17 03/15/17 03/15/17 20:00 20:30 21:00 21:30 Temp 98.0 Pulse 95 Resp 20 B/P (MAP) 168/77 O2 Delivery Room Air Room Air Room Air Room Air 03/15/17 03/15/17 03/15/17 03/16/17 22:00 23:00 23:30 00:01 Temp 96.9 Pulse 76 68 72 Resp 20 20 18 B/P (MAP) 159/80 139/60 145/67 O2 Delivery Room Air Room Air Room Air Room Air 03/16/17 03/16/17 03/16/17 03/16/17 00:30 01:00 01:30 02:00 Temp 97.7 Pulse 75 69 Resp 18 20 B/P (MAP) 142/82 157/75 O2 Delivery Room Air Room Air Room Air Non Rebreather O2 Flow Rate 10.00 03/16/17 03/16/17 03/16/17 03/16/17 02:30 03:00 04:00 04:30 Temp 97.7 Pulse 72 73 Resp 18 20 B/P (MAP) 144/69 129/82 O2 Delivery Non Rebreather Room Air Room Air Room Air O2 Flow Rate 10.00 03/16/17 03/16/17 03/16/17 03/16/17 05:00 06:00 06:30 06:40 Pulse 68 71 69 Resp 20 20 18 B/P (MAP) 138/75 135/76 191/101 O2 Delivery Room Air Room Air Room Air Room Air 03/16/17 03/16/17 03/16/17 03/16/17 06:42 07:00 07:50 08:00 Temp 97.7 99.2 Pulse 80 78 70 Resp 20 20 B/P (MAP) 175/85 169/83 131/72 O2 Delivery Room Air Room Air Room Air 03/16/17 03/16/17 03/16/17 03/16/17 08:15 08:30 08:45 09:00 Pulse 70 80 68 Resp 20 20 20 20 B/P (MAP) 132/62 141/84 145/81 O2 Delivery Room Air Room Air Room Air Room Air 03/16/17 03/16/17 03/16/17 03/16/17 09:15 09:30 09:45 10:00 Temp 97.9 Pulse 62 67 62 64 Resp 20 20 20 20 B/P (MAP) 129/83 146/85 180/101 143/83 Pulse Ox 99 99 O2 Delivery Room Air Room Air Room Air Room Air 03/16/17 03/16/17 03/16/17 03/16/17 10:15 10:30 10:45 11:00 Pulse 64 67 63 64 Resp 20 20 20 20 B/P (MAP) 138/80 142/81 145/75 136/73 Pulse Ox 99 98 100 98 O2 Delivery Room Air Room Air Room Air Room Air 03/16/17 03/16/17 03/16/17 03/16/17 11:15 11:30 11:45 12:00 Temp 98.7 Pulse 64 64 76 70 Resp 20 20 20 20 B/P (MAP) 142/70 155/72 113/91 120/86 Pulse Ox 97 97 97 99 O2 Delivery Room Air Room Air Room Air Room Air 03/16/17 03/16/17 03/16/17 03/16/17 12:15 12:30 12:45 13:00 Temp 98.5 Pulse 74 83 63 71 Resp 20 20 20 20 B/P (MAP) 164/86 166/91 161/79 Pulse Ox 99 100 100 99 O2 Delivery Room Air Room Air Room Air Room Air 03/16/17 03/16/17 03/16/17 03/16/17 13:15 13:30 13:45 14:00 Temp 98.4 Pulse 62 61 60 61 Resp 20 20 20 20 B/P (MAP) 164/86 149/85 139/67 133/75 Pulse Ox 98 99 97 97 O2 Delivery Room Air Room Air Room Air Room Air 03/16/17 03/16/17 03/16/17 03/16/17 14:15 14:30 14:45 15:00 Temp 99.0 Pulse 64 59 68 65 Resp 20 20 20 20 B/P (MAP) 138/78 142/80 133/85 174/112 Pulse Ox 98 99 99 99 O2 Delivery Room Air Room Air Room Air Room Air 03/16/17 03/16/17 03/16/17 03/16/17 15:15 15:30 15:30 15:38 Temp 97.5 Pulse 80 62 92 71 Resp 20 20 20 20 B/P (MAP) 145/81 186/97 185/102 194/111 Pulse Ox 100 100 99 100 O2 Delivery Room Air Room Air Room Air Room Air 03/16/17 03/16/17 03/16/17 03/16/17 15:45 15:49 15:52 15:53 Pulse 80 60 67 70 Resp 20 20 20 20 B/P (MAP) 190/98 178/85 171/96 164/100 Pulse Ox 100 99 99 100 O2 Delivery Room Air Room Air Room Air Room Air 03/16/17 03/16/17 03/16/17 03/16/17 16:00 16:00 16:15 16:30 Temp 97.0 Pulse 86 94 70 68 Resp 20 20 20 20 B/P (MAP) 162/106 212/126 130/58 177/81 Pulse Ox 98 98 100 100 O2 Delivery Room Air Room Air Room Air Room Air 03/16/17 03/16/17 03/16/17 03/16/17 16:45 17:00 17:15 17:30 Pulse 70 67 62 60 Resp 20 20 20 20 B/P (MAP) 195/89 132/63 132/61 130/63 Pulse Ox 100 100 100 100 O2 Delivery Room Air Room Air Room Air Room Air 03/16/17 03/16/17 03/16/17 03/16/17 17:45 18:00 18:15 18:30 Temp 97.6 Pulse 66 61 73 73 Resp 20 20 20 20 B/P (MAP) 142/79 151/69 148/77 183/89 Pulse Ox 100 100 99 97 O2 Delivery Room Air Room Air Room Air Room Air 03/16/17 03/16/17 03/16/17 03/16/17 18:45 19:00 19:12 21:00 Temp 98.6 Pulse 77 88 64 Resp 20 20 20 B/P (MAP) 137/76 145/87 155/67 Pulse Ox 98 98 O2 Delivery Room Air Room Air Room Air Room Air 03/16/17 03/16/17 03/16/17/20/17 21:39 22:15 23:19 23:50 Temp 98.7 96.7 Pulse 65 100 100 66 Resp 17 18 18 18 B/P (MAP) 151/95 174/82 169/89 155/85 Pulse Ox 99 60 69 100 O2 Delivery Room Air Room Air Room Air Room Air 03/17/17 03/17/17 03/17/17 03/17/17 02:30 06:00 08:00 12:00 Temp 97.6 97.8 96.8 96.9 Pulse 76 78 70 69 Resp 20 18 B/P (MAP) 146/74 133/76 127/74 124/70 Pulse Ox 98 98 97 99 O2 Delivery Room Air Room Air Room Air Room Air 03/17/17 03/17/17 03/17/17 03/18/17 16:00 20:15 21:00 00:00 Temp 97.2 96.6 98.4 Pulse 69 78 82 Resp 18 18 19 B/P (MAP) 142/92 130/70 130/68 Pulse Ox 98 96 97 O2 Delivery Room Air Room Air Room Air Room Air 03/18/17 04:25 Temp 98.4 Pulse 82 Resp 18 B/P (MAP) 138/65 Pulse Ox 97 O2 Delivery Room Air Physical Exam: General - Alert and oriented, no apparent distress Abdomen - Soft, appropriately tender to palpation, non-distended, fundus firm at umbilicus Incision - clean, dry and intact; no erythema or induration, no drainage Extremities - 1+ pitting bilat LE edema, negative Kwaku's bilaterally no new labs Assessment: 21 y/o post-operative day # 2, status post PLTCS for arrest of latent labor after IOL for gHTN. Recovering well, hemodynamically stable Acute blood loss anemia Hgb 9.2 Class III obesity 49 Plan: Routine post-operative care. Encourage breast feeding. Encourage ambulation. VTE prophylaxis: SCDs, lovenox given multiple risk factors Watch BPs carefully - all mild range in last 24 hours. Will watch for worsening si/sx pre-eclampsia. Will need 1 wk BP/incision check. Ferrous sulfate supplementation. Plan for discharge today, f/u as per Dr. Cabrera's discharge instructions. Vitals - Labs Vital Signs - I&O Vital Signs Date Time Temp Pulse Resp B/P (MAP) Pulse Ox O2 Delivery O2 Flow Rate FiO2 03/18/17 04:25 98.4 82 18 138/65 97 Room Air 03/18/17 00:00 98.4 82 19 130/68 97 Room Air 03/17/17 21:00 Room Air 03/17/17 20:15 96.6 78 18 130/70 96 Room Air 03/17/17 16:00 97.2 69 18 142/92 98 Room Air 03/17/17 12:00 96.9 69 18 124/70 99 Room Air I & O 03/18/17 07:00 Intake Total 1020 ml Output Total 5 ml Balance 1015 ml SABI ANTUNEZ MD Mar 18, 2017 08:18
[2017-03-18 08:44] VITALS: BP 128/73
[2017-03-18] MEDS: DOCUSATE SODIUM 100 MG (COLACE) CAP PO SCH (08:44)
[2017-03-18] MEDS: FERROUS SULF 325 MG (IRON) TAB PO SCH ×2 (08:44→15:02)
[2017-03-18] MEDS: ENOXAPARIN 40 MG/0.4 ML (LOVENOX) SYR SC SCH (08:45)
[2017-03-18] MEDS: HYDROcodone/APAP 5 MG/325 MG (LORTAB) TAB PO PRN ×2 (10:20→15:03)
[2017-03-18 15:30] VITALS: BP 148/70
--- NOTE | 2017-03-25 09:22 | DISCHARGE SUMMARY ---
DATE OF SERVICE: 03/18/2017 ADMISSION DIAGNOSES: 1. A 21-year-old G1, P0, 38 weeks gestation. 2. Uncontrolled gestational hypertension. 3. Group B strep negative. 4. Body mass index of 49. DISCHARGE DIAGNOSIS: 1. A 21-year-old G1, P0, 38 weeks gestation. 2. Uncontrolled gestational hypertension. 3. Group B strep negative. 4. Body mass index of 49. 5. Postoperative day 2 primary low transverse section for arrest of labor. 6. Acute blood loss anemia. ATTENDING PHYSICIAN: Dr. Sea Loaiza with coverage by Jerardo Pichardo. HOSPITAL SERVICES: [facility] HOSPITAL COURSE: Please see admission history and physical from 03/16/2017 for complete details pertaining to the patient's admission, presentation, induction, plan of care, as well as indications. Please see operative report from 03/17/2017 for complete details pertaining to the patient's operative indications and the procedure in detail. Postoperative course for this patient was fairly routine. On postoperative day 1 she was ambulating and voiding freely. She was tolerating a regular diet. Her lochia was normal. She denies any signs or symptoms of preeclampsia at that point. Her blood pressures did come down somewhat into the 130s/80s. Incision was clean, dry and intact. Her postoperative hemoglobin was found to be stable; however, it did drop down to 9.2. On postoperative day 2, the patient continued to do well. She was ambulating, voiding freely. Her pain was well controlled. Vital signs remained stable. Decision was made to discharge the patient on postoperative day 2 due to clinical stability. She was sent home on the following medications: MEDICATIONS: 1. Motrin 600 mg 1 p.o. q. 6 hours p.r.n. as needed for pain #60. 2. [place] 5/325 mg 1 p.o. q. 4-6 hours p.r.n. as needed for pain, #50. 3. Colace 100 mg 1 p.o. b.i.d. p.r.n. as needed for constipation, #40. Postoperative and precautions given to the patient at that point. Discharge was facilitated at that point without further difficulty. Job ID: [id number] DocumentID: [id number] Dictated Date: 03/24/2017 10:11:43 [employer] Coin [employer]or Date: 03/25/2017 09:21:03 Dictated By: SEA LOAIZA DO
== END 2017-03-18 19:10 | disposition home or self-care (01) | DRG 765 ==
LOC: LDRP 20:21
PROVIDERS: ADMIT Obstetrics & Gynecology; ATTEND Obstetrics & Gynecology
PROC: 3E0P05Z Introduction of Adhesion Barrier into Female Reproductive, Open Approach (ICD-10-PCS; 2017-03-16)
PROC: 10D00Z1 Extraction of Products of Conception, Low, Open Approach (ICD-10-PCS; principal; 2017-03-16 19:14)
DX: O13.3 Gestational [pregnancy-induced] hypertension without significant proteinuria, third trimester (principal); O62.1 Secondary uterine inertia; O99.03 Anemia complicating the puerperium; D62 Acute posthemorrhagic anemia; O99.213 Obesity complicating pregnancy, third trimester; E66.9 Obesity, unspecified; Z68.42 Body mass index [BMI] 45.0-49.9, adult; O76 Abnormality in fetal heart rate and rhythm complicating labor and delivery; O69.81X0 Labor and delivery complicated by cord around neck, without compression, not applicable or unspecified; Z3A.38 38 weeks gestation of pregnancy; Z37.0 Single live birth; Z23 Encounter for immunization
CPT/HCPCS: 36415; 85025; 86850; 86900; 86901; 88307; 90707; 94664

== ENCOUNTER → 2017-05-02 | Outpatient (CLI) | payer MEDICAID ==
[~2017-05-02] MED LIST changes: +DOCU100C37 PO; +FAMO-119 PO; +HYDR-3812 PO; +IBUP-1780 PO; +NORE-93 PO; +SERT50TA9 PO
--- NOTE | 2017-05-02 09:53 | Diagnostic Imaging Report ---
INDICATION: Postprandial abdominal pain. TECHNIQUE: Gallbladder sonography was performed in the routine fashion. FINDINGS: The liver shows normal echogenicity with no focal lesions. The portal vein is patent. The gallbladder shows multiple small stones layering posteriorly. There is no gallbladder wall thickening or biliary dilatation. The common duct was not seen. The right kidney measures 11.1 cm in length and shows no hydronephrosis. IMPRESSION: There are multiple small stones in the gallbladder layering posteriorly. No gallbladder wall thickening. The common duct was not visualized but there is no intrahepatic biliary dilatation. Dictated by: Dictated on workstation # [id number]
== END ==
LOC: RAD 06:46
PROVIDERS: ATTEND Obstetrics & Gynecology
DX: K80.20 Calculus of gallbladder without cholecystitis without obstruction (principal)
CPT/HCPCS: 76705

== ENCOUNTER 2017-05-04 05:43 | Outpatient (CLI) | payer MEDICAID ==
[~2017-05-04] VITALS: Ht 162.6 cm; Wt 129.5 kg
[~2017-05-04 05:43] MED LIST changes: -NORE-93 PO; -SERT50TA9 PO
[2017-05-04] MEDS ORDERED: NORE-93 PO (11:06)
[2017-05-04] MEDS ORDERED: SERT50TA9 PO (11:06)
== END 2017-05-04 11:23 ==
LOC: PREOP 05:43
PROVIDERS: ATTEND Surgery
DX: Z01.818 Encounter for other preprocedural examination (principal); K80.20 Calculus of gallbladder without cholecystitis without obstruction

== ENCOUNTER 2017-05-08 07:22 | Day surgery (SDC) | payer MEDICAID ==
[~2017-05-08] VITALS: Ht 162.6 cm; Wt 129.5 kg
[~2017-05-08 07:22] MED LIST changes: +NORE-93 PO; +SERT50TA9 PO
[2017-05-08] MEDS ORDERED: CLINDAMYCIN 600 MG/4ML (CLEOCIN) VIAL ONE (07:26)
[2017-05-08] MEDS ORDERED: NS (IVPB) 50 ML ONE (07:27)
[2017-05-08] MEDS ORDERED: CLINDAMYCIN 600 MG/NS 50 ML IVPB IV ONE ×2 (07:45)
[2017-05-08 07:50] VITALS: BP 117/58
[2017-05-08] MEDS ORDERED: LACTATED RINGERS 1,000 ML IV PRN (07:51)
[2017-05-08] MEDS ORDERED: ONDANSETRON 4 MG/2 ML (SDV) Z0FRAN ONE (07:59)
[2017-05-08] MEDS ORDERED: SCOPOLAMINE 1.5 MG (TRANSDERM-SCOP) PATCH TOP ONE (08:00)
[2017-05-08] MEDS ORDERED: FAMOTIDINE 20MG/2ML IV (PEPCID) IV ONE (08:00)
[2017-05-08] MEDS ORDERED: HURRICAINE EXT TUBE (BENZOCAINE) ONE (08:22)
[2017-05-08] MEDS ORDERED: proPOfol 200 MG/20 ML (DIPRIVAN) VIAL IV ONE (08:22)
[2017-05-08] MEDS ORDERED: DEXAMETHASONE PF 10 MG/ML (DECADRON) VIAL ONE (08:22)
[2017-05-08] MEDS ORDERED: LIDOCAINE PF 2% 5 ML (XYLOCAINE) VIAL ONE (08:22)
[2017-05-08] MEDS ORDERED: LACTATED RINGERS 1,000 ML IV ONE (08:22)
[2017-05-08] MEDS ORDERED: SEVOFLURANE (ULTANE) 15 ML INHAL SOLN ONE ×4 (08:22→10:02)
[2017-05-08] MEDS ORDERED: fentaNYL INJECTION 100 MCG/2 ML AMP ONE (08:23)
[2017-05-08] MEDS ORDERED: MIDAZOLAM 2 MG/2 ML (VERSED) VIAL ONE (08:23)
[2017-05-08] MEDS ORDERED: LIDOCAINE/EPI 1%-1:200,000 (XYLOCAINE) 30 ML VIAL ONE (08:28)
[2017-05-08] MEDS ORDERED: ONDANSETRON 4 MG/2 ML (SDV) Z0FRAN IV ONE (08:45)
--- NOTE | 2017-05-08 09:17 | Progress Note-Pre Operative ---
Pre-Operative Progress Note H&P Reviewed The H&P was reviewed, patient examined and no changes noted. Time Seen by Provider: 09:07 Date H&P Reviewed: May 08, 2017 Time H&P Reviewed: 09:09 Pre-Operative Diagnosis: cholecystitis/cholelithiasis GRAHAM MATHIAS DO May 08, 2017 09:17
[2017-05-08] MEDS ORDERED: NEOSTIGMINE (BLOXIVERZ ) 1 MG/1ML 10 ML VIAL ONE (10:02)
[2017-05-08] MEDS ORDERED: GLYCOPYRROLATE 0.2 MG/ML (ROBINUL) 2 ML VIAL ONE (10:02)
--- NOTE | 2017-05-08 10:09 | Progress Note-Post Operative ---
Post-Operative Progess Note Surgeon (s)/Leasing Assistant (s) Surgeon GRAHAM MATHIAS DO Leasing Assistant: Winnie Pre-Operative Diagnosis cholecystitis/cholelithiasis Post-Operative Diagnosis same Procedure & Operative Findings Date of Procedure 05/08/17 Procedure Performed/Findings Lap missael with IOC Anesthesia Type GET Estimated Blood Loss Estimated blood loss (mL): scant Specimens/Packing Specimens Removed GB and contents GRAHAM MATHIAS DO May 08, 2017 10:09
[2017-05-08] MEDS ORDERED: HYDR-3820 PO (10:10)
--- NOTE | 2017-05-08 10:12 | Discharge Inst-Surgical ---
Discharge Inst-Surgical Depart Medication/Instructions New, Converted or Re-Newed RX: RX Given to Pt/Family Patient Instructions Follow up Appt: Make appointment for 1 week, Instructions: No lifting greater than 10 pounds. No strenuous activity. May shower in 24 hours, no tub bath or soaking. Use incentive spirometer at home as directed. No Smoking Skin/Wound Care: May remove bandages. Dermabond will fall off on its own. Symptoms to Report: Appetite Changes, Extremity Discoloration, Numbness/Tingling, Swelling Increased , Bleeding Excessive, Eyesight Changes, Pain Increased, Urine Color Change, Constipation(Persistent), Fever over 101 degree F, Pain/Pressure in chest, Urinating Difficulty, Cough Up/Vomit Blood, Heart Beat Irreg/Pounding, Pain/ Pressure in jaw, Vaginal Bleeding Increase, Cramps in feet or legs, Lightheadedness, Pain/Pressure in shoulder, Diarrhea(Persistent), Memory Changes Suddenly, Questions/Concerns, Weight gain consecutive days, Dizziness/ Fainting, Nausea/Vomiting, Shortness of Breath, Weight gain over 2 pounds. If eyes or skin turn yellow notify physician. If questions or concerns contact your physician Or seek help at emergency department. Activity Activity as Tolerated: Yes Activity Instructions: Avoid Stress to Incision Driving Instructions: No Driving/Refer to Diet Discharge Diet: Avoid Fatty Foods, Low Fat/Low Cholesterol Diet After 24 Hours: Clear Liquid if Nauseous If Any Problems/Questions/Issu: Contact Your Physician, Go to Emergency Room Skin/Wound Care Infection Signs and Symptoms: Increased Redness, Foul Odor of Wound, Increased Drainage, Skin Itchy or Has a Rash, Increased Swelling, Temperature Above 101 F Wound Care Comment: Heating pad to shoulder and neck for pain tonight. Stitches/[place]/Dermabond Dis: Dermabond Ice Pack: Ice On and Off Site GRAHAM MATHIAS DO May 08, 2017 10:12
[2017-05-08] MEDS: morphine INJ 10 MG/ML 1ML (SYR OR VIAL) IVP PRN ×2 (10:23→10:30)
--- NOTE | 2017-05-08 10:30 | Diagnostic Imaging Report ---
Intraoperative cholangiogram. INDICATION: Abdominal pain. Laparoscopic cholecystectomy. 4 cc of Omnipaque 300 and 16 seconds of fluoroscopy time is provided. FINDINGS: There is normal caliber of the CBD without filling defects or evidence of obstruction. Emptying into the duodenum seen. IMPRESSION: No evidence of CBD stone or obstruction. Dictated by: Dictated on workstation # [id number]
[2017-05-08 11:20] VITALS: BP 145/86
[2017-05-08] MEDS ORDERED: PROMETHAZINE INJ 25 MG/ML (PHENERGAN) AMP ONE (11:24)
[2017-05-08] MEDS ORDERED: PROMETHAZINE INJ 25 MG/ML (PHENERGAN) AMP IVP ONE (11:30)
[2017-05-08 11:50] VITALS: BP 141/92
[2017-05-08 12:20] VITALS: BP 141/94
[2017-05-08] MEDS ORDERED: HYDROcodone/APAP 10 MG/325 MG (LORTAB) TAB PO ONE ×2 (12:32→13:15)
--- NOTE | 2017-05-09 00:55 | OPERATIVE REPORT ---
DATE OF SERVICE: 05/08/2017 PREOPERATIVE DIAGNOSES: Cholelithiasis and cholecystitis. POSTOPERATIVE DIAGNOSES: Cholelithiasis and cholecystitis. PROCEDURES: Laparoscopic cholecystectomy with intraoperative cholangiogram. SURGEON: Master White DO EXPLOSIVE OPERATOR FUSE: Dr. Zhou. ANESTHESIA: General endotracheal tube. SPECIMEN: Gallbladder and contents. BLOOD LOSS: Scant. FLUIDS: Per anesthesia. POSTOPERATIVE CONDITION: Stable. INDICATION FOR PROCEDURE: The patient is a 21-year-old female who has been having pain in the right upper quadrant associated with fried and fatty foods and had ultrasound which showed stones in the gallbladder. FINDINGS: The patient had adhesions with gallbladder as well as small intestine stuck close to the gallbladder, which is indicative of previous gallbladder attacks. PROCEDURE NOTE: After informed consent was obtained, the patient was brought to the operating room and placed on the table in supine position. She was sterilely prepped and draped in normal fashion. Local lidocaine was used to infiltrate the skin above the umbilicus. The incision with a #11 blade, carried down through the skin into the subcutaneous tissue, then debrided down the subcutaneous tissue with Bovie electrocautery down to the fascia. Fascia incised with Bovie electrocautery and then bluntly entered the abdomen, swept a finger around. Placed an 11-mm trocar port under direct visualization after first placing a 0 Vicryl [id number] suture. Created a pneumoperitoneum and placed 2 more ports in a normal fashion using local lidocaine, a 11-blade for stab incision and the VersaStep system, all done under direct visualization, one subxiphoid and 2 in the right upper quadrant. She was placed in reverse Trendelenburg and rotated left, able to grasp the gallbladder at the fundus and taken it in a superior direction, noted adhesions, pictures were taken. These were then carefully down with blunt dissection as well as Bovie electrocautery. Duodenum was also 0124 up closely, this carefully pushed away. Once these are pushed away, then able to grasp down to Ramos's pouch and pull in the inferolateral direction and start dissecting out the cystic duct and cystic artery. Able to get around the cystic duct and the cystic artery, placed 1 clip distally in the cystic duct and 1 distally and 1 proximally in the cystic artery. Cut the cystic duct chcf through with Metzenbaum scissors. Placed a cholangiogram catheter and then shot a cholangiogram, good spillage of dye down the common bile duct into the small intestine as well as then up into common hepatic, then removed the cholangiogram catheter, placed 2 clips proximally on the cystic duct and cut the cystic duct and cystic artery with Metzenbaum scissors. I then removed the gallbladder from the bed of the liver with L hook cautery. Once it was completely removed, placed a bag in the abdomen, put the gallbladder in the bag and then removed this through a supraumbilical incision. I placed the port back in the abdomen, copiously irrigated with normal saline, pictured the bed of the liver, no bleeding. Placed the patient back in supine position, suctioned out the fluid and then suctioned out the pneumoperitoneum, as well as allowed it to escape, then closed with supraumbilical incision, closing the fascia with 0 Vicryl suture previously placed and copiously irrigated all incisions with normal saline, closing the 3 small 5 mm incisions with a single interrupted 4-0 undyed Monocryl subcuticular stitch. Closed the supraumbilical incision with 3 interrupted 4-0 undyed Monocryl subcuticular stitches. The area was cleaned and dried and Dermabond placed and the patient then transferred to the recovery room in stable condition. Sponge, instrument and needle counts correct at the end of the case. Dr. Zhou assisted in this case. He made incisions, placed ports, helped to hold the gallbladder as well as identified anatomy and helped to close the incisions. Job ID: [id number] DocumentID: [id number] Dictated Date: 05/08/2017 11:13:44 Chemical Engineering Technologist Date: 05/08/2017 21:59:07 Dictated By: MASTER WHITE DO
== END 2017-05-08 14:25 | disposition home or self-care (01) ==
LOC: SDC 07:22
PROVIDERS: ATTEND Surgery
DX: K80.10 Calculus of gallbladder with chronic cholecystitis without obstruction (principal); F41.9 Anxiety disorder, unspecified; F33.0 Major depressive disorder, recurrent, mild; Z87.891 Personal history of nicotine dependence; E66.01 Morbid (severe) obesity due to excess calories; Z68.42 Body mass index [BMI] 45.0-49.9, adult
CPT/HCPCS: 84703; 87081

== ENCOUNTER 2018-03-05 15:52 | Emergency (ER) | payer MEDICAID ==
[~2018-03-05] VITALS: Ht 162.6 cm; Wt 111.4 kg
[~2018-03-05 15:52] MED LIST changes: +ACHD5005 PO; -HYDR-3812 PO; +HYDR-3820 PO
--- OUTSIDE RECORDS SUMMARY | 2018-03-05 15:58 | XMS REPORT | Clinical Summary ---
Author Author [facility] Organization [facility] Address Unknown Phone Unavailable Care Team Providers Care Wall Washer Name Role Phone Siobhan Siu MD PCP Source Comments Some departments are not documenting in the electronic medical record. If you do not see the information that you expected, contact Release of Information in the Health Information Management department at [phone] for further assistance in locating additional records.[facility] Allergies Not on File Current Medications Not on file Active Problems Not on file Social History Tobacco Use Types Packs/Day Years Used Date Never Assessed Sex Assigned at Date Recorded Not on file Last Filed Vital Signs Not on file Plan of Treatment Health Maintenance Due Date Last Done Comments PHYSICAL (COMPREHENSIVE) 2002 EXAM HPV VACCINES (1 of 3 - 2006 Female 3 Dose Series) PERTUSSIS VACCINE 2006 HIV SCREENING 2010 TETANUS VACCINE 2012 CERVICAL CANCER SCREENING 2016 INFLUENZA VACCINE 08/27/2018 Results Not on filefrom Last 3 Months
--- OUTSIDE RECORDS SUMMARY | 2018-03-05 16:01 | XMS REPORT | Continuity of Care Document ---
Author Author [facility] Address Unknown Phone Unavailable Allergies Active Description Code Type Severity Reaction Onset Reported/Identified Relationship to Patient Clinical Status Yes AMOXICILLIN UNKNOWN GI PROBLEMS - NAUSEA Yes SEASONAL ALLERGIES SEASONAL ALLERGIES Mild N/A 04/30/2013 Yes Amoxicillin Drug Allergy N/A N/A 07/31/2013 Yes Penicillins Drug Allergy N/A N/A 07/31/2013 Yes amoxicillin [id number] Drug Allergy Mild N/A 05/04/2017 Yes Penicillins [id number] Drug Allergy Mild N/A 05/04/2017 Medications There is no data. Problems Date Dx Coded Attending Type Code [...] 03/13/2013 V03.89 MENINGOCOCCAL DX 03/13/2013 V04.89 GARDASIL (HPV ) DX 03/13/2013 V03.89 MENINGOCOCCAL DX 03/13/2013 V04.89 GARDASIL (HPV ) DX 03/13/2013 V03.89 MENINGOCOCCAL DX 03/13/2013 V04.89 GARDASIL (HPV ) DX 03/13/2013 MIKE CHAVEZ TERRIE Muro V03.89 MENINGOCOCCAL DX 03/13/2013 MIKE CAIFabio TERRIE Muro V04.89 GARDASIL (HPV) DX 05/01/2013 THAO PEDROZA DO Ot 682.6 CELLULITIS OF LEG 05/01/2013 KASIA SANCHEZ THAO Kee Ot 916.4 INSECT BITE HIP LEG 05/01/2013 KASIA SANCHEZ THAO Kee Ot 916.5 INSECT BITE HIP/LEG-INF 05/01/2013 THAO PEDROZA DO Ot E000.8 OTHER EXTERNAL CAUSE STATUS 05/01/2013 KASIA SANCHEZ THAO Kee Ot E906.4 NONVENOM ARTHROPOD BITE 07/31/2013 461.0 SINUSITIS, ACUTE MAXILLARY 07/31/2013 MAYRAREINIER CHAVEZ TERRIE Muro 461.0 SINUSITIS, ACUTE MAXILLARY 03/01/2014 SHOAIB GIMENEZ CHAIN MAKER LOOM CONTROL Ot 599.0 URIN TRACT INFECTION NOS 03/01/2014 SHOAIB GIMENEZ CHAIN MAKER LOOM CONTROL Ot 724.5 BACKACHE NOS 09/02/2014 THAO PEDROZA DO Ot 844.9 SPRAIN OF KNEE LEG NOS 09/02/2014 KASIA SANCHEZ THAO Kee Ot 845.00 SPRAIN OF ANKLE NOS 09/02/2014 KASIA SANCHEZ THAO Kee Ot 959.7 LOWER LEG INJURY NOS 09/02/2014 KASIA SANCHEZ THAO Kee Ot E000.8 OTHER EXTERNAL CAUSE STATUS 09/02/2014 KASIA SANCHEZ THAO Kee Ot E883.9 FALL INTO OTHER HOLE 09/02/2014 KASIA SANCHEZ THAO Kee Ot W17.2XXA FALL INTO HOLE, INITIAL ENCOUNTER 09/02/2014 KASIA SANCHEZ THAO Kee Ot Y99.8 OTHER EXTERNAL CAUSE STATUS 05/21/2015 Ot 424.1 05/21/2015 Ot 786.2 05/21/2015 RENITA RIVAS MD Ot 786.2 05/25/2015 TERESA BAILEY DO Ot 214.9 LIPOMA NOS 05/25/2015 TERESA BAILEY DO Ot 278.01 MORBID OBESITY 05/25/2015 TERESA BAILEY DO Ot 300.00 ANXIETY STATE NOS 05/25/2015 LYNN SANCHEZ JESSARYTIE Ot 305.1 TOBACCO USE DISORDER 05/25/2015 LYNN SANCHEZ JESSARYTIE Ot 311 DEPRESSIVE DISORDER NEC 05/25/2015 LYNN SANCHEZ JESSARYTIE Ot 424.1 AORTIC VALVE DISORDER 05/25/2015 LYNN SANCHEZ JESSJASPREET Ot 477.9 ALLERGIC RHINITIS NOS 05/25/2015 LYNN SANCHEZTERESA Ot 732.0 JUV OSTEOCHONDROS SPINE 05/25/2015 LYNN DO JESSARYTIE Ot V85.42 BODY MASS INDEX 45.0-49.9, ADULT 06/04/2015 MADDI PAZ, MALIKA Kate Ot 682.6 CELLULITIS OF LEG 06/04/2015 MADDI PAZ, MALIKA Kate Ot 729.81 SWELLING OF LIMB 06/04/2015 MADDI PAZ, MALIKA Kate Ot 998.59 OTH POSTOPER INFECTION 06/04/2015 LYNN SANCHEZ, KINGTIE Ot 214.9 06/28/2015 TAMARA HOLLAND Ot 682.6 CELLULITIS OF LEG 06/28/2015 TAMARA HOLLAND Ot 998.59 OTH POSTOPER INFECTION 09/10/2015 Ot 424.1 09/10/2015 Ot 786.2 09/10/2015 RENITA RIVAS MD Ot 786.2 09/10/2015 LYNN SANCHEZ, JESSROUTIE Ot 214.9 09/10/2015 LYNN DO, JESSROUTIE Ot 782.2 09/10/2015 LYNN DO, JESSROUTIE Ot V72.84 09/10/2015 LYNN DO, JESSROUTIE Ot 214.9 09/16/2015 LYNN DO, JESSROUTIE Ot 214.9 09/16/2015 Ot 424.1 09/16/2015 Ot 786.2 09/16/2015 RENITA RIVAS MD Ot 786.2 09/16/2015 LYNN DO, TERESA Ot 214.9 09/16/2015 LYNN DO, JESSROUTIE Ot 782.2 09/16/2015 LYNN DOKINGTIE Ot V72.84 12/28/2016 RENITA RIVAS MD Ot 786.2 COUGH 12/28/2016 LYNN DO, JESSROUTIE Ot 214.9 LIPOMA NOS 12/28/2016 LNYN DO, JESSROUTIE Ot 782.2 LOCAL SUPRFICIAL SWELLNG 12/28/2016 LYNN DO, JESSROUTIE Ot V72.84 EXAM PRE-OPERATIVE NOS 12/28/2016 EVELYN PAZ, RENITA Herrera Ot 786.2 COUGH 12/28/2016 LYNN DO, JESSROUTIE Ot 214.9 LIPOMA NOS 12/28/2016 LYNN DO, JESSROUTIE Ot 782.2 LOCAL SUPRFICIAL SWELLNG 12/28/2016 LYNN DO, CHANDROUTIE Ot V72.84 EXAM PRE-OPERATIVE NOS 12/28/2016 TULIO PAZ, SABI N Ot O36.8120 DECREASED MOVEMENTS, SECOND TRIMES 12/28/2016 TULIO PAZ, SABI N Ot Z3A.27 27 WEEKS GESTATION OF 12/30/2016 JOSHUA ANTUNEZ MDIN N Ot O36.8120 DECREASED MOVEMENTS, SECOND TRIMES 12/30/2016 TULIO PAZ, SABI N Ot Z3A.27 27 WEEKS GESTATION OF 02/17/2017 EVELYN PAZ, RNEITA Herrera Ot 786.2 COUGH 02/17/2017 LYNN DO, JESSROUTIE Ot 214.9 LIPOMA NOS 02/17/2017 LYNN DO, JESSROUTIE Ot 782.2 LOCAL SUPRFICIAL SWELLNG 02/17/2017 LYNN DO, JESSROUTIE Ot V72.84 EXAM PRE-OPERATIVE NOS 02/17/2017 FENECH DO, EFREM S Ot M54.9 DORSALGIA, UNSPECIFIED 02/17/2017 FENECH DO, EFREM S Ot O99.89 OTH DISEASES AND CONDITIONS COMPL PREG/C 02/17/2017 FENECH DO, EFREM S Ot R10.2 PELVIC AND PERINEAL PAIN 02/17/2017 FENECH DO, EFREM S Ot Z3A.34 34 WEEKS GESTATION OF 02/21/2017 FENECH DO, EFREM S Ot M54.9 DORSALGIA, UNSPECIFIED 02/21/2017 FENECH DO, EFREM S Ot O99.89 OTH DISEASES AND CONDITIONS COMPL PREG/C 02/21/2017 FENECH DO, EFREM S Ot R10.2 PELVIC AND PERINEAL PAIN 02/21/2017 EFREM LOAIZA DO S Ot Z3A.34 34 WEEKS GESTATION OF 03/01/2017 LOREECH DOEFREM S Ot O13.3 GESTATIONAL HTN W/O SIGNIFICANT PROTEINU 03/01/2017 FENECH DOEFREM S Ot Z3A.35 35 WEEKS GESTATION OF 03/01/2017 LOREECH DO, EFREM S Ot O13.3 GESTATIONAL HTN W/O SIGNIFICANT PROTEINU 03/01/2017 FENECH DOEFREM S Ot Z3A.35 35 WEEKS GESTATION OF 03/06/2017 FENECH DO, EFREM S Ot O13.3 GESTATIONAL HTN W/O SIGNIFICANT PROTEINU 03/06/2017 FENECH DO, EFREM S Ot Z3A.36 36 WEEKS GESTATION OF 03/10/2017 EVELYN PAZ, RENTIA Herrera Ot 786.2 COUGH 03/10/2017 LYNN DO, JESSROUTIE Ot 214.9 LIPOMA NOS 03/10/2017 LYNN , JESSROUTIE Ot 782.2 LOCAL SUPRFICIAL SWELLNG 03/10/2017 LYNN DO, JESSROUTIE Ot V72.84 EXAM PRE-OPERATIVE NOS 03/10/2017 EVELYN PAZ, RENITA Herrera Ot 786.2 COUGH 03/10/2017 LYNN DO, CHANDROUTIE Ot 214.9 LIPOMA NOS 03/10/2017 LYNN DO, CHANDROUTIE Ot 782.2 LOCAL SUPRFICIAL SWELLNG 03/10/2017 LYNN DO, CHANDROUTIE Ot V72.84 EXAM PRE-OPERATIVE NOS 03/10/2017 SARAI COOLEY DO Ot O12.13 GESTATIONAL PROTEINURIA, THIRD TRIMESTER 03/10/2017 SARAI COOLEY DO Ot O99.89 OTH DISEASES AND CONDITIONS COMPL PREG/C 03/10/2017 SARAI COOLEY DO Ot R51 HEADACHE 03/10/2017 SARAI COOLEY DO Ot Z3A.37 37 WEEKS GESTATION OF 03/11/2017 EFREM LOAIZA DO S Ot O13.3 GESTATIONAL HTN W/O SIGNIFICANT PROTEINU 03/11/2017 LOREECH DO, EFREM S Ot Z3A.35 35 WEEKS GESTATION OF 03/18/2017 LOREECH EFREM SANCHEZ S Ot D62 ACUTE POSTHEMORRHAGIC ANEMIA 03/18/2017 LOREECH EFREM S Ot E66.9 OBESITY, UNSPECIFIED 03/18/2017 FENECH DO EFREM Tobias Ot O13.3 GESTATIONAL HTN W/O SIGNIFICANT PROTEINU 03/18/2017 LORELEEANNA EFREM Micheline Ot 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 03/18/2017 JOSSE SANCHEZ EFREM Tobias Grady O69.81X0 LABOR AND DEL COMP BY CORD AROUND NECK, 03/18/2017 JOSSE SANCHEZ EFREM Tobias Grady O76 ABNLT IN HEART RATE AND RHYTHM COM 03/18/2017 JOSSE SANCHEZEFREM Ot O99.03 ANEMIA COMPLICATING THE PUERPERIUM 03/18/2017 JOSSE SANCHEZEFREM Ot O99.213 OBESITY COMPLICATING , THIRD TR 03/18/2017 JOSSE SANCHEZEFREM Ot Z23 ENCOUNTER FOR IMMUNIZATION 03/18/2017 LOREEFREM DURÁN DO, Ot Z37.0 SINGLE LIVE 03/18/2017 LOREEFREM DURÁN DO, Ot Z3A.38 38 WEEKS GESTATION OF 03/18/2017 LOREEFREM DURÁN DO, Ot Z68.42 BODY MASS INDEX (BMI) 45.0-49.9, ADULT 03/22/2017 SARAI COOLEY DO Ot O12.13 GESTATIONAL PROTEINURIA, THIRD TRIMESTER 03/22/2017 SARAI COOLEY DO Ot O99.89 OTH DISEASES AND CONDITIONS COMPL PREG/C 03/22/2017 SARAI COOLEY DO, Ot R51 HEADACHE 03/22/2017 SARAI COOLEY DO Ot Z3A.37 37 WEEKS GESTATION OF 04/13/2017 TERESA BAILEY DO Ot 214.9 LIPOMA NOS 04/13/2017 TERESA BAILEY DO, Ot 214.9 LIPOMA NOS 05/08/2017 GRAHAM MATHIAS DO, Ot E66.01 MORBID (SEVERE) OBESITY DUE TO EXCESS CA 05/08/2017 GRAHAM MATHIAS DO Ot F33.0 MAJOR DEPRESSIVE DISORDER, RECURRENT, ID 05/08/2017 GRAHAM MATHIAS DO, Ot F41.9 ANXIETY DISORDER, UNSPECIFIED 05/08/2017 GRAHAM MATHIAS DO Ot K80.10 CALCULUS OF GALLBLADDER W CHRONIC CHOLEC 05/08/2017 GRAHAM MATHIAS DO, Ot Z68.42 BODY MASS INDEX (BMI) 45.0-49.9, ADULT 05/08/2017 GRAHAM MATHIAS DO, Ot Z87.891 PERSONAL HISTORY OF NICOTINE DEPENDENCE 05/09/2017 JOSHUA MATHIAS DOIC Galina Ot E66.01 MORBID (SEVERE) OBESITY DUE TO EXCESS CA 05/09/2017 STEW SANCHEZ GRAHAM B Ot F33.0 MAJOR DEPRESSIVE DISORDER, RECURRENT, ID 05/09/2017 STEW SANCHEZ GRAHAM B Ot F41.9 ANXIETY DISORDER, UNSPECIFIED 05/09/2017 JOSHUA MATHIAS DOIC Galina Ot K80.10 CALCULUS OF GALLBLADDER W CHRONIC CHOLEC 05/09/2017 STEW SANCHEZ GRAHAM B Ot Z68.42 BODY MASS INDEX (BMI) 45.0-49.9, ADULT 05/09/2017 JOSHUA MATHIAS DOIC Galina Ot Z87.891 PERSONAL HISTORY OF NICOTINE DEPENDENCE 05/10/2017 STEW SANCHEZ GRAHAM B Ot K80.20 CALCULUS OF GALLBLADDER W/O CHOLECYSTITI 05/10/2017 STEW SANCHEZ GRAHAM B Ot Z01.818 ENCOUNTER FOR OTHER PREPROCEDURAL EXAMIN 05/17/2017 EFREM LOAIZA DO Ot K80.20 CALCULUS OF GALLBLADDER W/O CHOLECYSTITI 11/07/2017 RENITA RIVAS 338.2 CHRONIC PAIN 11/07/2017 RENITA RIVAS 715.15 OSTEOARTHROSIS, LOCALIZED, PRIMARY, INVOLVING PELVIC REGION AND THIGH 11/07/2017 RENITA RIVAS 719.45 PAIN IN JOINT INVOLVING PELVIC REGION AND THIGH 11/07/2017 RENITA RIVAS 724.4 11/07/2017 RENITA RIVAS G89.29 OTHER CHRONIC PAIN 11/07/2017 RENITA IRVAS M16.0 BILATERAL PRIMARY OSTEOARTHRITIS OF HIP 11/07/2017 RENITA RIVAS M25.551 PAIN IN RIGHT HIP 11/07/2017 RENITA RIVAS M25.552 PAIN IN LEFT HIP 11/07/2017 RENITA RIVAS M54.16 RADICULOPATHY, LUMBAR REGION 11/26/2017 RENITA RIVAS 724.4 THORACIC OR LUMBOSACRAL NEURITIS OR RADICULITIS, UNSPECIFIED 11/26/2017 RENITA RIVAS 729.2 NEURALGIA, NEURITIS, AND RADICULITIS, UNSPECIFIED 11/26/2017 RENITA RIVAS M54.10 RADICULOPATHY, SITE UNSPECIFIED 11/26/2017 RENITA RIVAS A M54.16 RADICULOPATHY, LUMBAR REGION 11/26/2017 RENITA RIVAS W 719.45 PAIN IN JOINT INVOLVING PELVIC REGION AND THIGH 11/26/2017 IMAN RIVASHEL A 724.4 THORACIC OR LUMBOSACRAL NEURITIS OR RADICULITIS, UNSPECIFIED 11/26/2017 IMAN RIVASHEL W 729.2 NEURALGIA, NEURITIS, AND RADICULITIS, UNSPECIFIED 11/26/2017 EVELYN RENITA W M25.559 PAIN IN UNSPECIFIED HIP 11/26/2017 IMAN RIVASHEL W M54.10 RADICULOPATHY, SITE UNSPECIFIED 11/26/2017 EVELYN RENITA A M54.16 RADICULOPATHY, LUMBAR REGION 11/26/2017 IMAN RIVASHEL W 719.45 PAIN IN JOINT INVOLVING PELVIC REGION AND THIGH 11/26/2017 EVELYN RENITA A 724.4 THORACIC OR LUMBOSACRAL NEURITIS OR RADICULITIS, UNSPECIFIED 11/26/2017 RIVAS RENITA W 729.2 NEURALGIA, NEURITIS, AND RADICULITIS, UNSPECIFIED 11/26/2017 IMAN RIVASHEL W M25.559 PAIN IN UNSPECIFIED HIP 11/26/2017 RIVAS RENITA W M54.10 RADICULOPATHY, SITE UNSPECIFIED 11/26/2017 IMAN RIVASHEL A M54.16 RADICULOPATHY, LUMBAR REGION 01/18/2018 RENITA RIVAS W 780.79 OTHER MALAISE AND FATIGUE 01/18/2018 RENITA RIVAS W E66 OVERWEIGHT AND OBESITY 01/18/2018 EVELYN RENITA W R53.83 OTHER FATIGUE 01/18/2018 RENITA RIVAS W 780.79 OTHER MALAISE AND FATIGUE 01/18/2018 RENITA RIVAS W E66 OVERWEIGHT AND OBESITY 01/18/2018 RENITA RIVAS W R53.83 OTHER FATIGUE 01/18/2018 RENITA RIVAS W 780.79 OTHER MALAISE AND FATIGUE 01/18/2018 RENITA RIVAS W E66 OVERWEIGHT AND OBESITY 01/18/2018 RENITA RIVAS W R53.83 OTHER FATIGUE 01/18/2018 RENITA RIVAS W 780.79 OTHER MALAISE AND FATIGUE 01/18/2018 RENITA RIVAS W E66 OVERWEIGHT AND OBESITY 01/18/2018 RENITA RIVAS W R53.83 OTHER FATIGUE Procedures Code Description [place] [address] THERAPUTIC INJ SQ/IM 07/31/2013 J1040 DEPO MEDROL 80 MG INJ 07/31/2013 [id number] EXTRACTION OF POC, LOW CERVICAL, OPEN AP 03/16/2017 [id number] INTRODUCE OF ADHESION BARRIER INTO FEM R 03/16/2017 Results Test Result Range Complete urinalysis with reflex to culture - 02/17/17 22:00 Urine color determination YELLOW NRG Urine clarity determination SLIGHTLY CLOUDY NRG Urine pH measurement by test strip 5 5-9 Specific gravity of urine by test strip 1.025 1.016- 1.022 Urine protein assay by test strip, semi-quantitative [...] 6-12 Urine creatinine measurement (mass/volume) 225 mg/dL 30- 125 Urine protein/creatinine mass ratio 0.08 NRG Complete blood count (CBC) with automated white blood cell (WBC) differential - 02/28/17 17:30 Blood leukocytes automated count (number/volume) 9.4 10*3/uL 4.3-11.0 Blood erythrocytes automated count (number/volume) 4.22 10*6/uL 4.35-5.85 Venous blood hemoglobin measurement (mass/volume) 12.6 [...] Automated blood platelet mean volume measurement 12.6 [foz_us] 7.4-10.4 Automated blood neutrophils/100 leukocytes 70 % [...] Serum or plasma sodium measurement (moles/volume) 139 mmol/L 135-145 Serum or plasma potassium measurement (moles/volume) 3.5 mmol/L 3.6-5.0 Serum or plasma chloride measurement (moles/volume) 108 mmol/L 98-107 Carbon dioxide 20 mmol/L 21-32 Serum or plasma anion gap determination (moles/volume) 11 mmol/L 5-14 Serum or plasma urea nitrogen measurement (mass/volume) 7 mg/dL 7-18 Serum or plasma creatinine measurement (mass/volume) 0.75 mg/dL 0.60-1.30 Serum or plasma urea nitrogen/creatinine mass [...] or plasma uric acid measurement (mass/volume) 6.3 mg/dL 2.6-7.2 Complete urinalysis with reflex to culture - 03/05/17 17:33 Urine color determination YELLOW NRG Urine clarity determination SLIGHTLY CLOUDY NRG Urine pH measurement by test strip 5 5-9 Specific gravity of urine by test strip 1.025 1.016- 1.022 Urine protein assay by test strip, semi-quantitative [...] 6-12 Urine creatinine measurement (mass/volume) 263 mg/dL 30- 125 Urine protein/creatinine mass ratio 0.07 NRG Bacterial urine culture - 03/05/17 17:33 URINE CULTURE RESULTS <10,000/ML NR Complete blood count (CBC) with automated white blood cell (WBC) differential - 03/05/17 18:30 Blood leukocytes automated count (number/volume) 11.8 10*3/uL 4.3-11.0 Blood erythrocytes automated count (number/volume) 4.04 10*6/uL 4.35-5.85 Venous blood hemoglobin measurement (mass/volume) 11.7 [...] Automated blood platelet mean volume measurement 12.8 [foz_us] 7.4-10.4 Automated blood neutrophils/100 leukocytes 74 % [...] Serum or plasma sodium measurement (moles/volume) 139 mmol/L 135-145 Serum or plasma potassium measurement (moles/volume) 3.4 mmol/L 3.6-5.0 Serum or plasma chloride measurement (moles/volume) 109 mmol/L 98-107 Carbon dioxide 18 mmol/L 21-32 Serum or plasma anion gap determination (moles/volume) 12 mmol/L 5-14 Serum or plasma urea nitrogen measurement (mass/volume) 9 mg/dL 7-18 Serum or plasma creatinine measurement (mass/volume) 0.74 mg/dL 0.60-1.30 Serum or plasma urea nitrogen/creatinine mass [...] or plasma uric acid measurement (mass/volume) 6.6 mg/dL 2.6-7.2 Complete urinalysis with reflex to culture - 03/10/17 21:25 Urine color determination YELLOW NRG Urine clarity determination SLIGHTLY CLOUDY NRG Urine pH measurement by test strip 6.5 5-9 Specific gravity of urine by test strip 1.020 1.016- 1.022 Urine protein assay by test strip, semi-quantitative [...] Urine pH measurement by test strip 6.5 5-9 Specific gravity of urine by test strip 1.020 1.016- 1.022 Urine protein assay by test strip, semi-quantitative [...] 21:20 Blood leukocytes automated count (number/volume) 9.8 10*3/uL 4.3-11.0 Blood erythrocytes automated count (number/volume) 4.17 10*6/uL 4.35-5.85 Venous blood hemoglobin measurement (mass/volume) 12.1 [...] Automated blood platelet mean volume measurement 12.2 [foz_us] 7.4-10.4 Automated blood neutrophils/100 leukocytes 68 % [...] panel - 03/15/17 21:20 ABO+Rh group OP NRG Transfusion band number [id number] NR Blood group antibody screen NEGATIVE NR Complete blood count (CBC) with automated white blood cell (WBC) differential - 03/17/17 05:52 Blood leukocytes automated count (number/volume) 12.8 10*3/uL 4.3-11.0 Blood erythrocytes automated count (number/volume) 3.21 10*6/uL 4.35-5.85 Venous blood hemoglobin measurement (mass/volume) 9.2 [...] Automated blood platelet mean volume measurement 12.3 [foz_us] 7.4-10.4 Automated blood neutrophils/100 leukocytes 80 % [...] blood basophil count (count/volume) 0.0 10*3/uL 0.0-0.1 CBC with Auto Diff - 04/05/17 10:10 Baso% 0.50 % 0.00-2.50 Eos 0.2 K/uL 0.0-0.7 Eos% 4.1 % 0.0-7.0 Hct 32.9 % 36.0-46.0 Hgb 10.5 g/dL 13.0-15.0 Lym 1.92 K/uL 0.60-3.40 Lym% 46.5 % 10.0-50.0 MCH 27.9 pg 27.0-31.0 MCHC 31.9 g/dL 32.0-36.0 MCV 87.3 fL 80.0-97.0 [place]% 9.2 % 0.0-12.0 MPV 10.4 fL 7.4-10.0 Joan% 39.7 % 37.0-80.0 Plt 241 K/uL 150-400 RBC 3.77 M/uL 3.60-5.00 RDW 13.2 % 11.6-14.8 WBC 4.13 Result Verified by Repeat Analysis K/uL 5.00- 10.00 Joan 1.64 K/uL 2.00-6.90 [place] 0.4 K/uL 0.0-0.9 Baso 0.0 K/uL 0.0-0.2 Urine beta human chorionic gonadotropin (hCG) measurement - 05/08/17 07:30 Urine beta human chorionic gonadotropin (hCG) measurement NEGATIVE NEGATIVE Methicillin resistant Staphylococcus aureus (MRSA) screening culture - 07:30 Methicillin resistant Staphylococcus aureus (MRSA) screening culture NEG NRG Thyroid Stimulating Hormone - 06/27/17 14:40 TSH 1.51 mIU/mL 0.32-5.00 Hemoglobin A1C - 01/18/18 10:32 % A1C 4.60 % 5.40-6.60 AvGlu 88 mg/dL 70-110 Encounters ACCT No. Visit Date/Time Discharge Status Pt. Type Provider Facility Loc./Unit Complaint [id number] 04/02/2014 10:52:00 04/02/2014 23:59:59 CLS Outpatient TERRIE MCKEON APRN [id number] 07/31/2013 09:04:00 Document Registration [id number] 04/10/2013 10:21:00 Document Registration [id number] 03/13/2013 13:10:00 Document Registration [email or web address] 06/28/2015 14:02:25 ACT Document Registration [id number] 01/18/2018 13:35:00 01/18/2018 23:59:00 DIS Outpatient RENITA RIVAS [id number] 11/26/2017 10:04:00 11/26/2017 23:59:00 DIS Outpatient RENITA RIVAS [id number] 11/26/2017 00:00:00 11/26/2017 00:00:00 CAN Outpatient RENITA RIVAS [id number] 11/23/2017 00:00:00 11/23/2017 00:00:00 CAN Outpatient RENITA RIVAS [id number] 11/07/2017 14:29:00 11/07/2017 15:43:00 DIS Outpatient RENITA RIVAS [id number] 06/27/2017 14:47:00 06/27/2017 23:59:00 DIS Outpatient RENITA RIVAS [id number] 04/05/2017 12:51:00 04/05/2017 23:59:00 DIS Outpatient Brenna Morrison [id number] 04/05/2017 11:46:00 04/05/2017 23:59:00 DIS Outpatient Brenna Morrison [id number] 05/08/2017 07:22:00 05/08/2017 14:25:00 DIS Outpatient GRAHAM MATHIAS DO [facility] MULTIPLE GALLSTONES [id number] 05/04/2017 05:43:00 05/04/2017 11:23:00 DIS Outpatient GRAHAM MATHIAS DO [facility] PREOP MULTIPLE GALLSTONES [id number] 05/02/2017 06:46:00 05/02/2017 23:59:59 CLS Outpatient EFREM LOAIZA DO [facility] RAD POSTPRANDIAL RUQ PAIN R10.11 [id number] 03/15/2017 20:21:00 03/18/2017 19:10:00 DIS Inpatient EFREM LOAIZA DO [facility] LDRP INDUCTION [id number] 03/10/2017 21:15:00 03/10/2017 23:17:00 DIS Outpatient SARAI COOLEY DO Emeka [facility] HIGH BLOOD PRESSURE, HEADACHE [id number] 03/05/2017 17:08:00 03/06/2017 09:25:00 DIS Outpatient EFREM LOAIZA DO [facility] SWELLING,SOB,HEADACHE ,DIZZINESS [id number] 03/01/2017 18:49:00 03/01/2017 19:23:00 DIS Outpatient EFREM LOAIZA DO [facility] [id number] 02/28/2017 16:45:00 03/01/2017 09:15:00 DIS Inpatient EFREM LOAIZA DO [facility] LDRP INDUCED HYPERTENSION [id number] 02/17/2017 22:06:00 02/17/2017 23:06:00 DIS Outpatient EFREM LOAIZA DO [facility] LOWER BACK PAIN [id number] 12/28/2016 12:00:00 12/28/2016 14:20:00 DIS Outpatient SABI ANTUNEZ MD [facility] DECREASED MOVEMENT [id number] 06/28/2015 14:01:00 06/28/2015 17:31:00 DIS Emergency TAMARA HOLLAND [facility] ER RIGHT LEG INFECTION [id number] 06/03/2015 22:25:00 06/04/2015 00:48:00 DIS Emergency MALIKA LINDA MD [facility] ER R LEG SWELLING [id number] 05/25/2015 09:53:00 05/25/2015 15:47:00 DIS Outpatient TERESA BAILEY DO [facility] SDC MASSES RIGHT LOWER LEG [id number] 05/22/2015 10:58:00 05/22/2015 23:59:59 CLS Outpatient LYNN DO, JESSJASPREET [facility] PREOP MASSES RIGHT LOWER LEG [id number] 05/21/2015 13:15:00 05/21/2015 23:59:59 CLS Outpatient LYNN DO KINGAMMON [facility] RAD LIPOMAS ON BOTH LOWER LEGS [id number] 09/02/2014 21:16:00 09/02/2014 22:41:00 DIS Emergency THAO PEDROZA DO [facility] ER HERRERA/ANKLE PAIN [id number] 03/01/2014 21:30:00 03/01/2014 23:27:00 DIS Emergency SHOAIB GIMENEZ APRN [facility] ER BACK PAIN [id number] 05/16/2013 11:25:00 05/16/2013 23:59:59 CLS Outpatient EVELYN PAZ, RENITA Herrera [facility] RAD COUGH [id number] 04/30/2013 22:26:00 05/01/2013 00:36:00 DIS Emergency KASIA THAO SANCHEZ [facility] ER POSSIBLE ABSCESS [id number] 01/18/2011 16:02:00 Document Registration [id number] 12/14/2010 09:49:00 Document Registration
--- NOTE | 2018-03-05 16:24 | ED EENT ---
History of Present Illness General Chief Complaint: Oral/Throat Problems Stated Complaint: SORES ON TONGUE Nursing Triage Note: PT STATES SHE HAS BLISTERS ON HER TONGUE THAT STARTED LAST MONDAY AND TODAY IS STARTING TO LOOSE HER VOICE. Source: patient Exam Limitations: no limitations History of Present Illness Date Seen by Provider: Mar 05, 2018 Time Seen by Provider: 16:24 Initial Comments 22-year-old female patient presents to the emergency department complains of blisters on the tongue beginning Monday. Also reports she is feeling like she is losing her voice today. Denies any difficulty swallowing or difficulty breathing. Denies throat pain. Significant mother reports the patient has poison coretta that started last on the neck. Timing/Duration: other (2 days) Location: mouth, throat Prearrival Treatment: no prearrival treatment Modifying Factors: Worse With Other (worse with palpation and eating.) Allergies and Home Medications Allergies Coded Allergies: Penicillins (Verified Allergy, Mild, 05/04/17) amoxicillin (Unverified Allergy, Mild, 05/04/17) Home Medications Hydrocodone/Acetaminophen 1 Each Tablet, 1 TAB PO Q6H Prescribed by: GRAHAM MATHIAS on 05/08/17 1010 Norethindrone AC-Eth Estradiol 1 Each Tablet, 1 EACH PO DAILY, (Reported) [id number]/Iron Fumarate/FA/Dss 1 Each Tablet, 1 EACH PO DAILY, (Reported) Prednisone 20 Mg Tab, 40 MG PO DAILY Prescribed by: TAMARA RDZ on 03/05/181651 Sertraline HCl 50 Mg Tablet, 50 MG PO DAILY, (Reported) Valacyclovir HCl 1,000 Mg Tablet, 1,000 MG PO BID Prescribed by: TAMARA RDZ on 03/05/181651 [blue goo] , 1 ML TOP QID PRN for RASH Prescribed by: TAMARA RDZ on 03/05/181651 [viscous lidocaine 2%] , 5 ML PO Q6H PRN for pain Prescribed by: TAMARA RDZ on 03/05/181651 Patient Home Medication List Home Medication List Reviewed: Yes Review of Systems Constitutional: chills, No diaphoresis, No fever, malaise Eyes: No Symptoms Reported Ears: No Symptoms Reported Nose: denies congestion, denies pain Mouth: see HPI, pain, denies swelling Throat: see HPI, denies pain, denies swelling, denies neck stiffness, hoarse, denies aphonia, denies muffled, denies painful swallowing, denies difficulty with fluids Respiratory: No cough, No phlegm, No short of breath, No stridor, No wheezing Cardiovascular: no symptoms reported Gastrointestinal: No abdominal pain, No constipation, No diarrhea, loss of appetite, No melena, nausea, No vomiting Musculoskeletal: no symptoms reported Skin: no symptoms reported Neurological: No Symptoms Reported All Other Systems Reviewed Negative Unless Noted: Yes (Negative excepted noted.) Past Bontuko-Bpwowe-Yrhoid Hx Patient Social History Alcohol Use: Denies Use Recreational Drug Use: No Smoking Status: Former Smoker Type Used: Cigarettes Former Smoker, Quit: Jul 28, 2015 Recent Foreign Travel: No Contact w/Someone Who Travel: No Recent Infectious Disease Expo: No Recent Hopitalizations: Yes (C-[facility] 03/16/2016) Immunizations Up To Date Tetanus Booster (TDap): Less than 5yrs PED Vaccines UTD: Yes Date of Influenza Vaccine: Sep 05, 2016 Seasonal Allergies Seasonal Allergies: Yes Past Medical History Surgeries: Yes (WISDOM TEETH, FATTY TUMOR REMOVED FROM ELIDA LEG) Adenoidectomy, Section, Gallbladder, Tonsillectomy Respiratory: No Currently Using CPAP: No Currently Using BIPAP: No Cardiac: Yes Heart Murmur Neurological: No (Headaches during ) : No Last Menstrual Period: Mar 03, 2018 Reproductive Disorders: No Female Reproductive Disorders: Endometriosis Sexually Transmitted Disease: No HIV/AIDS: No Genitourinary: No Gastrointestinal: Yes (Heartburn during ) Gastroesophageal Reflux, Gall Bladder Disease Musculoskeletal: Yes (Right arm fx age 3) Fractures Endocrine: No HEENT: No Loss of Vision: Bilateral Hearing Impairment: Denies Cancer: No Psychosocial: Yes Anxiety, Depression Integumentary: No Blood Disorders: No Adverse Reaction/Blood Tranf: No (N/A) Family Medical History Reviewed and Corrections made Asthma 19 MOTHER Fibromyalgia 19 FATHER Hypertension 19 FATHER No Pertinent Family Hx Physical Exam Vital Signs Vital Signs - First Documented 03/05/18 03/05/18 16:16 17:04 Temp 96.3 Pulse 78 Resp 20 B/P (MAP) 119/74 (89) Pulse Ox 98 O2 Delivery Room Air General Appearance: WD/WN, no apparent distress Eyes: bilateral eye normal inspection, bilateral eye PERRL, bilateral eye EOMI Ears: bilateral ear auricle normal, bilateral ear canal normal, bilateral ear TM normal Nose: normal inspection Mouth/Throat: pharynx normal, No excessive drooling, No mandibular swelling, No maxillary swelling, No pharynx swelling, No tongue swollen, No uvula swelling , No voice changes, other (vesicles noted on the border of the tongue with erythematous bases. Small vesicles noted on the buccal mucosa.) Neck: non-tender, full range of motion, supple, lymphadenopathy (R), lymphadenopathy (L) Cardiovascular: normal peripheral pulses, regular rate, rhythm, no murmur Respiratory: lungs clear, normal breath sounds, no respiratory distress, no accessory muscle use Gastrointestinal: normal bowel sounds, non tender, soft Neurologic/Psychiatric: alert, normal mood/affect, oriented x 3 Skin: normal color, warm/dry, rash (urticarial rash of the left and posterior neck consistent with a history of poison coretta.) Progress/Results/Core Measures My Orders Orders - TAMARA RDZ Lidocaine 2% Viscous 15 Ml (Xylocaine Vi (03/05/18 16:45) Ibuprofen Tablet (Motrin Tablet) (03/05/18 16:43) Medications Given in ED Current Medications Medications Dose Ordered Sig/Nirav Route Start Time Stop Time Status Last Admin Dose Admin Lidocaine HCl 5 ml ONCE ONCE PO 03/05/18 16:45 03/05/18 16:46 DC 03/05/18 16:59 5 ML Vital Signs/I&O 03/05/18 03/05/18 03/05/18 16:16 16:58 17:04 Temp 96.3 96.3 96.3 Pulse 78 78 Resp 20 20 B/P (MAP) 119/74 (89) 119/74 (89) Pulse Ox 98 O2 Delivery Room Air Room Air Blood Pressure Mean: 89 Departure Impression Primary Impression: Herpes simplex virus infection Additional Impression: Poison coretta dermatitis Disposition: 01 HOME, SELF-CARE Condition: Improved Departure-Patient Inst. Decision time for Depature: 16:45 Referrals: RENITA RIVAS MD (PCP/Family) Primary Care Physician Patient Instructions: Cold Sores (Oral Herpes) (DC) Add. Discharge Instructions: All discharge instructions reviewed with patient and/or family. Voiced understanding. Medications as instructed. Tylenol extra strength over-the- counter as directed for pain. Ibuprofen 800 mg by mouth every 8 hours as needed for pain. Bldb-ife-efhxesx throat lozenges and sprays as needed for throat pain. Follow-up with your primary care provider for recheck as an outpatient. Return to the emergency department for worsened symptoms or any other concerns. Scripts [blue goo] No Conflict Check 1 ML TOP QID Y for RASH, #1 EA 0 Refills Prov: TAMARA RDZ 03/05/18 [viscous lidocaine 2%] No Conflict Check 5 ML PO Q6H Y for pain, #60 ML 0 Refills Prov: TAMARA RDZ 03/05/18 Valacyclovir HCl (Valacyclovir) 1,000 Mg Tablet 1000 MG PO BID, #14 TAB 0 Refills Prov: TAMARA RDZ 03/05/18 Prednisone (Prednisone) 20 Mg Tab 40 MG PO DAILY, #10 TAB 0 Refills Prov: TAMARA RDZ 03/05/18 Work/School Note: Work Release Form Date Seen in the Emergency Department: Mar 05, 2018 Return to Work: Mar 06, 2018 TAMARA RDZ Mar 05, 2018 16:24
[2018-03-05] MEDS ORDERED: IBUPROFEN 800 MG (MOTRIN) TAB PO STA (16:43)
[2018-03-05] MEDS ORDERED: LIDOCAINE 2% VISCOUS 15 ML UDC PO ONE (16:45)
[2018-03-05] MEDS ORDERED: viscous lidocaine 2% PO (16:52)
[2018-03-05] MEDS ORDERED: blue goo TOP (16:52)
[2018-03-05] MEDS ORDERED: PRD20T PO (16:52)
[2018-03-05] MEDS ORDERED: VALA1000 PO (16:52)
[2018-03-05 17:04] VITALS: BP 119/74
== END 2018-03-05 17:04 | disposition home or self-care (01) ==
LOC: EDUNIT# 15:52 → ER 15:55
DX: B00.9 Herpesviral infection, unspecified (principal); K21.9 Gastro-esophageal reflux disease without esophagitis; F41.9 Anxiety disorder, unspecified; F32.9 Major depressive disorder, single episode, unspecified; Z87.891 Personal history of nicotine dependence; Z87.19 Personal history of other diseases of the digestive system; Z87.59 Personal history of other complications of pregnancy, childbirth and the puerperium; Z90.89 Acquired absence of other organs; Z87.81 Personal history of (healed) traumatic fracture; Z88.0 Allergy status to penicillin; Z88.1 Allergy status to other antibiotic agents
CPT/HCPCS: 99283

== ENCOUNTER → 2023-07-25 | Outpatient (CLI) | payer MEDICAID ==
[~2023-07-25] MED LIST changes: +ACHYD1T PO; -HYDR-3820 PO; +PRD20T PO; +SERT-413 PO; -SERT50TA9 PO; +VALA10007 PO; +blue goo TOP; +viscous lidocaine 2% PO
--- NOTE | 2023-07-25 10:19 | Diagnostic Imaging Report ---
US LEFT LOWER EXT [id number] INDICATION: Left hunt swelling COMPARISON: None available. TECHNIQUE: Targeted grayscale and color Doppler imaging of the left lower leg. FINDINGS: The area of swelling in the anterior aspect of the lower leg was imaged. There is no fluid collection or mass present. There is a cobblestone appearance of the subcutaneous tissues most likely due to edema or contusion. IMPRESSION: Subcutaneous edema and/or contusion accounts for the area of swelling. No hematoma or mass. Dictated by: Dictated on workstation # [id number]
== END ==
LOC: RAD 08:15
PROVIDERS: ATTEND Surgery
DX: R22.42 Localized swelling, mass and lump, left lower limb (principal)
CPT/HCPCS: 76881